=== PATIENT | male | born 1955 | race African-American/Black ===

== ENCOUNTER 2017-09-19 15:15 | Inpatient (IN) ==
[2017-09-19] MEDS ORDERED: 0.9 % SODIUM CHLORIDE 1,000 ML IV ONE ×3 (15:24→16:50)
--- NOTE | 2017-09-19 15:47 | XRay Report ---
HISTORY: Reason for Exam:SOB FINDINGS: Right diaphragm is mild to moderately elevated. This has become worse since 08/12/17. The lungs are clear. The heart size, mediastinum, sobia and pleura are normal. IMPRESSION: Increasing elevation of the right diaphragm of undetermined etiology Interpreted and Authenticated by: Joaquín Duckworth 09/19/17
[2017-09-19 15:59] LABS: Mean Cell Volume 91.4 fL (80.0-100.0); Mean Corpuscular HGB Conc 33.4 g/dL (31.0-36.0); Mean Corpuscular Hemoglobin 30.5 pg (26.0-34.0); Platelet Count 467 K/mcL (140-440); RBC 4.26 M/mcL (4.50-5.90); Red Cell Distribution Width 13.6 % (11.5-14.5)
--- NOTE | 2017-09-19 16:09 | Emergency Department Note ---
SOB HPI - General Chief Complaint: Shortness of Breath/Dyspnea Stated Complaint: Shortness of breath Time Seen by Provider: 09/19/17 15:23 Source: patient Mode of arrival: ambulatory Limitations: no limitations - History of Present Illness 62-year-old male sent over Shalom Rosen PA-C from [facility], for shortness of breath with hypotension. He has been short of breath for the last 3-4 weeks but is been getting worse. Increased urination. Has had diarrhea for the last few days which is watery. No blood in stool or urine. No nausea or vomiting. He is having right lower quadrant pain. No recent antibiotics. The belly pain wakes him up at night sometimes but he is also having to get up to go urinate. He recently had a cholecystectomy back in August 2017 or about 6 weeks ago - Related Data Previous Rx's Medication Instructions Recorded TriMix 30 mcg INTRACAVIT DIRECTED #2 09/09/16 amlodipine 5 mg tablet 5 mg PO QDAY #30 tab 02/14/17 spironolactone 25 mg tablet 25 mg PO QAM #30 tab 06/30/17 rosuvastatin 10 mg tablet 10 mg PO QDAY #90 tab 07/07/17 glipizide ER 10 mg tablet, 10 mg PO QDAY #90 tab 08/06/17 extended release 24 hr sitagliptin 25 mg tablet 25 mg PO QDAY #90 tab 08/06/17 losartan 50 mg tablet 50 mg PO QDAY #30 tab 08/11/17 esomeprazole magnesium 20 mg 20 mg PO BID #180 cap 08/12/17 capsule,delayed release Allergies Allergy/AdvReac Type Severity Reaction Status Date / Time No Known Drug Allergies Allergy Verified 09/19/17 14:54 Review of Systems All systems ED: reviewed and negative except as stated. Past Medical History - Past Medical History Attestation: Yes: The following information was validated with the patient. Medical history: Reports: arthritis, DM, GERD, hyperlipidemia, hypertension, renal disease, other (Mnire's, peripheral vascular disease) Surgical history ED: Reports: cholecystectomy, orthopedic, other (Rotator cuff, ankle), other (Prostate cryotherapy, pilonidal cyst) - Social History smoking status: Former smoker Alcohol use: Reports: Frequently Physical Exam No acute distress resting comfortably. Normocephalic atraumatic. Hearing aid in place. Conjunctive are clear sclerae nonicteric. No nasal discharge or congestion. Oropharynx pink and moist. Neck is supple without lymphadenopathy thyromegaly or carotid bruit. Heart is regular rate and rhythm no murmur appreciated. Lungs are clear to auscultation bilaterally without wheezes rales rhonchi or respiratory distress-that said he does have increased work of breathing and dyspnea with even mild exertion like moving around on the bed. Abdomen is soft nontender except for the right lower quadrant which is mildly tender. No peritoneal signs or guarding. No pedal edema. +2 radial pulse. Alert oriented able to answer questions appropriately. No dysarthria or ataxia noted Limitations: no limitations Course Vital Signs Temperature 96.4 F L 09/19/17 15:15 Pulse Rate 100 H 09/19/17 15:15 Respiratory Rate 18 09/19/17 15:15 Blood Pressure 97/61 09/19/17 15:15 Pulse Oximetry (%) 98 09/19/17 15:15 Temperature 96.4 F L 09/19/17 15:15 Pulse Rate 93 H 09/19/17 17:09 Respiratory Rate 14 09/19/17 17:09 Blood Pressure 87/56 09/19/17 17:09 Pulse Oximetry (%) 99 09/19/17 17:09 Shortness of Breath/Dyspnea - Lab Data Lab results reviewed: Yes I reviewed the patient's lab results. Result diagrams: 09/19/17 15:30 09/19/17 15:30 Lab Results 09/19/17 09/19/17 09/19/17 Range/Units 15:30 15:30 15:30 WBC 23.4 H (4.5-11.0) K/mcL RBC 4.26 L (4.50-5.90) M/mcL Hgb 13.0 L (13.5-16.5) g/dL Hct 38.9 L (41.0-55.0) % POC Hct (41.0-55.0) % MCV 91.4 (80.0-100.0) fL MCH 30.5 (26.0-34.0) pg MCHC 33.4 (31.0-36.0) g/dL RDW 13.6 (11.5-14.5) % Plt Count 467 H (140-440) K/mcL MPV 7.4 (7.4-10.4) fL Total Counted 100 Seg Neutrophils % 69 (38-78) % Band Neutrophils % Not Reportable Lymphocytes % 15 (15-49) % Monocytes % (Manual) 9 (1-12) % Eosinophils % (Manual) 2 (0-7) % Metamyelocytes % 3 H (0-0) % Myelocytes % 2 H (0-0) % Platelet Estimate Increased A (NORMAL) RBC Morphology Normal (NORMAL) D-Dimer VBG Lactic Acid (0.5-2.2) mmol/L POC Sodium (133-145) mmol/L Sodium 127 L (133-145) mmol/L POC Potassium (3.3-5.1) mmol/L Potassium 4.4 (3.3-5.1) mmol/L POC Chloride (96-108) mmol/L Chloride 90 L (96-108) mmol/L Carbon Dioxide 18 L (22-30) mmol/L POC Total CO2 (22-30) mmol/L Anion Gap 19.0 H (8-16) POC BUN (8-23) mg/dl BUN 35 H (8-23) mg/dl Creatinine 2.7 H (0.7-1.2) mg/dl POC Creatinine (0.7-1.2) mg/dl GFR Calculation 24 Glucose 227 H (70-105) mg/dL POC Glucose (70-105) mg/dL Calcium 9.8 (8.6-10.4) mg/dl POC WB Ioniz Calcium (1.16-1.32) mmol/L Total Bilirubin 1.0 (0.0-1.0) mg/dL AST 105 H (0-37) U/l ALT 43 H (0-40) U/l Alkaline Phosphatase 274 H (39-117) U/L Total Protein 8.4 (5.9-8.4) gm/dL Albumin 3.0 L (3.2-5.2) gm/dL Globulin 5.4 H (2.2-3.7) gm/dL Albumin/Globulin Ratio 0.6 L (1.0-2.3) Lipase (7-60) U/L Procalcitonin 71.88 (<0.10) ng/mL Urine Color Urine Appearance Urine pH (5.0-9.0) Ur Specific [place] (1.000-1.035) Urine Protein (NEG) mg/dL Urine Glucose (UA) (NEG) mg/dL Urine Ketones (NEG) mg/dL Urine Occult Blood (<0.03) mg/dL Urine Nitrate (NEG) Urine Bilirubin (NEG) mg/dL Urine Ictotest (NEG) Urine Urobilinogen (NEG) mg/dL Ur Leukocyte Esterase (NEG) /uL Urine RBC (0-1) /hpf Urine WBC (0-4) /hpf Ur Squamous Epith Cells (0-4) /hpf Amorphous Crystals (0) /hpf Urine Bacteria (0) /hpf Granular Casts (0) /lpf Ur Culture Indicated? 09/19/17 09/19/17 09/19/17 Range/Units 15:40 15:50 15:58 WBC (4.5-11.0) K/mcL RBC (4.50-5.90) M/mcL Hgb (13.5-16.5) g/dL Hct (41.0-55.0) % POC Hct 37.0 L (41.0-55.0) % MCV (80.0-100.0) fL MCH (26.0-34.0) pg MCHC (31.0-36.0) g/dL RDW (11.5-14.5) % Plt Count (140-440) K/mcL MPV (7.4-10.4) fL Total Counted Seg Neutrophils % (38-78) % Band Neutrophils % Lymphocytes % (15-49) % Monocytes % (Manual) (1-12) % Eosinophils % (Manual) (0-7) % Metamyelocytes % (0-0) % Myelocytes % (0-0) % Platelet Estimate (NORMAL) RBC Morphology (NORMAL) D-Dimer VBG Lactic Acid 3.0 H (0.5-2.2) mmol/L POC Sodium 133 (133-145) mmol/L Sodium (133-145) mmol/L POC Potassium 4.0 (3.3-5.1) mmol/L Potassium (3.3-5.1) mmol/L POC Chloride 102 (96-108) mmol/L Chloride (96-108) mmol/L Carbon Dioxide (22-30) mmol/L POC Total CO2 18 L (22-30) mmol/L Anion Gap (8-16) POC BUN 32 H (8-23) mg/dl BUN (8-23) mg/dl Creatinine (0.7-1.2) mg/dl POC Creatinine 2.5 H (0.7-1.2) mg/dl GFR Calculation Glucose (70-105) mg/dL POC Glucose 218 H (70-105) mg/dL Calcium (8.6-10.4) mg/dl POC WB Ioniz Calcium 1.09 L (1.16-1.32) mmol/L Total Bilirubin (0.0-1.0) mg/dL AST (0-37) U/l ALT (0-40) U/l Alkaline Phosphatase (39-117) U/L Total Protein (5.9-8.4) gm/dL Albumin (3.2-5.2) gm/dL Globulin (2.2-3.7) gm/dL Albumin/Globulin Ratio (1.0-2.3) Lipase (7-60) U/L Procalcitonin (<0.10) ng/mL Urine Color Ruby Urine Appearance Hazy Urine pH 5.0 (5.0-9.0) Ur Specific [place] 1.025 (1.000-1.035) Urine Protein 100 A (NEG) mg/dL Urine Glucose (UA) 150 A (NEG) mg/dL Urine Ketones Neg (NEG) mg/dL Urine Occult Blood Neg (<0.03) mg/dL Urine Nitrate Neg (NEG) Urine Bilirubin Neg (NEG) mg/dL Urine Ictotest Neg (NEG) Urine Urobilinogen 4.0 A (NEG) mg/dL Ur Leukocyte Esterase 25 A (NEG) /uL Urine RBC 1 (0-1) /hpf Urine WBC 7 H (0-4) /hpf Ur Squamous Epith Cells 1 (0-4) /hpf Amorphous Crystals Few A (0) /hpf Urine Bacteria 0 (0) /hpf Granular Casts 6 H (0) /lpf Ur Culture Indicated? Yes 09/19/17 09/19/17 Range/Units 16:30 17:30 WBC (4.5-11.0) K/mcL RBC (4.50-5.90) M/mcL Hgb (13.5-16.5) g/dL Hct (41.0-55.0) % POC Hct (41.0-55.0) % MCV (80.0-100.0) fL MCH (26.0-34.0) pg MCHC (31.0-36.0) g/dL RDW (11.5-14.5) % Plt Count (140-440) K/mcL MPV (7.4-10.4) fL Total Counted Seg Neutrophils % (38-78) % Band Neutrophils % Lymphocytes % (15-49) % Monocytes % (Manual) (1-12) % Eosinophils % (Manual) (0-7) % Metamyelocytes % (0-0) % Myelocytes % (0-0) % Platelet Estimate (NORMAL) RBC Morphology (NORMAL) D-Dimer TNP VBG Lactic Acid (0.5-2.2) mmol/L POC Sodium (133-145) mmol/L Sodium (133-145) mmol/L POC Potassium (3.3-5.1) mmol/L Potassium (3.3-5.1) mmol/L POC Chloride (96-108) mmol/L Chloride (96-108) mmol/L Carbon Dioxide (22-30) mmol/L POC Total CO2 (22-30) mmol/L Anion Gap (8-16) POC BUN (8-23) mg/dl BUN (8-23) mg/dl Creatinine (0.7-1.2) mg/dl POC Creatinine (0.7-1.2) mg/dl GFR Calculation Glucose (70-105) mg/dL POC Glucose (70-105) mg/dL Calcium (8.6-10.4) mg/dl POC WB Ioniz Calcium (1.16-1.32) mmol/L Total Bilirubin (0.0-1.0) mg/dL AST (0-37) U/l ALT (0-40) U/l Alkaline Phosphatase (39-117) U/L Total Protein (5.9-8.4) gm/dL Albumin (3.2-5.2) gm/dL Globulin (2.2-3.7) gm/dL Albumin/Globulin Ratio (1.0-2.3) Lipase 46 (7-60) U/L Procalcitonin (<0.10) ng/mL Urine Color Urine Appearance Urine pH (5.0-9.0) Ur Specific [place] (1.000-1.035) Urine Protein (NEG) mg/dL Urine Glucose (UA) (NEG) mg/dL Urine Ketones (NEG) mg/dL Urine Occult Blood (<0.03) mg/dL Urine Nitrate (NEG) Urine Bilirubin (NEG) mg/dL Urine Ictotest (NEG) Urine Urobilinogen (NEG) mg/dL Ur Leukocyte Esterase (NEG) /uL Urine RBC (0-1) /hpf Urine WBC (0-4) /hpf Ur Squamous Epith Cells (0-4) /hpf Amorphous Crystals (0) /hpf Urine Bacteria (0) /hpf Granular Casts (0) /lpf Ur Culture Indicated? - Radiology Data Radiology results reviewed: Yes I reviewed the patient's radiology results. Chest x-ray shows no acute process. Mildly elevated right hemidiaphragm - EKG Data EKG attestation: Yes I reviewed and interpreted this EKG. EKG results narrative: EKG shows a rate of 102 with a long QT but no evidence of ischemia Disposition Pt seen by [facility]/PA only: No Clinical Impression: Liver abscess, Acute kidney injury, Shortness of breath Sepsis Qualifiers: Sepsis type: sepsis due to unspecified organism Qualified Code(s): A41.9 - Sepsis, unspecified organism Summary: Workup ordered with laboratory and chest x-ray-Sirs/sepsis protocol started. Culture ordered and Zosyn started Chest x-ray unrevealing-he has unexplained tachycardia hypotension and dyspnea on exertion so CT angios was ordered. CT abdomen and pelvis is also ordered of the abdomen because the right sided tenderness and the potential for sepsis from belly pathology. Blood pressure remained low even manually right side 87/56 left side 84/59 Laboratories concerning for sepsis with leukocytosis and lactic acidosis. Unfortunately because of his creatinine level which is markedly increased from 1.1 now to 2.7 we could not get CT scans with contrast so CT is done without contrast. CT chest is normal appearing but he has a very large liver with mass versus abscess. Per radiology will do liver biopsy with catheter drain to sort out. Labs ordered on tissue/fluid preprocedure ABG and d-dimer are pending Discussed his case with Dr. Yohannes Pride, general surgeon, and Dr. Cho, hospitalist. Reviewed CT scan together. Dr. Cho will admit patient for sepsis to the ICU after he returns from drain catheter placement in IR. Disposition: Xfer As Inpt ([facility]) Condition: Critical Referrals: Buddy Obregon MD [Primary Care Provider] -
[2017-09-19] MEDS ORDERED: PIPERACILLIN SODIUM/TAZOBACTAM 3.375 GM in DEXTROSE 5% IN WATER 50 ML IV ONE (16:23)
[2017-09-19 16:29] LABS: ALT/SGPT 43 U/l (0-40); Albumin/Globulin Ratio 0.6 (1.0-2.3); Alkaline Phosphatase 274 U/L (39-117); Blood Urea Nitrogen 35 mg/dl (8-23)
[2017-09-19 16:33] LABS: Eosinophils % (Manual) 2 % (0-7); Lymphocytes % 15 % (15-49); Metamyelocytes % 3 % (0-0); Monocytes % (Manual) 9 % (1-12); Myelocytes % 2 % (0-0); Platelet Estimate INCREASED (NORMAL); RBC Morphology NORMAL (NORMAL); Segmented Neutrophils % 69 % (38-78)
[2017-09-19 16:40] LABS: Appearance,Urine HAZY; Bacteria,Urine 0 /hpf (0); Bilirubin,Urine NEG (NEG); Color,Urine AMBER; Glucose,Urine (UA) 150 mg/dL (NEG); Ictotest,Urine NEG (NEG); Leukocyte Esterase,Urine 25 /uL (NEG); Protein,Urine 100 mg/dL (NEG); Specific Gravity,Urine 1.025 (1.000-1.035); Urine Amorphous Crystals FEW /hpf (0); Urine Blood NEG mg/dL (<0.03); Urine Granular Cast 6 /lpf (0); Urine RBC 1 /hpf (0-1); Urine Squamous Epithelial Cell 1 /hpf (0-4); Urine WBC 7 /hpf (0-4)
--- NOTE | 2017-09-19 17:15 | Cat Scan Report ---
History: Shortness of breath, abdominal pain and elevated white blood cell count TECHNIQUE: The patient was imaged without intravenous contrast due to rising BUN/creatinine. Patient was scanned from the thoracic inlet to the symphysis pubis. Sagittal and coronal reformats were created. Radiation exposure was limited using dose reduction technique. FINDINGS: The lungs are clear, without evidence of pneumonia, mass or pleural effusion. The heart is normal in size and contour. The aorta is normal in caliber. There is no plaque formation. No adenopathy is present in the mediastinum. Abdomen and pelvis: There is a large multilobulated low-attenuation mass located centrally in the right lobe of the liver. Measures approximately 10 x 11 cm in size. It contains a small bubble of air. There are also two linear oriented radiopaque structures along the anterior aspect which could be surgical clips. There are also clips in gallbladder fossa following cholecystectomy. This lesion within the liver extends through the capsule into the region of the gallbladder fossa and is contiguous with the hepatic flexure the colon. The extrahepatic component of the lesion measures approximately 4 x 9 cm. No free intraperitoneal air is present in the patient has no ascites. The spleen pancreas and adrenals are normal. There is a 2 mm calculus in the upper pole the right kidney. No hydronephrosis is present in either kidney. Bowel gas pattern is normal. Urinary bladder is decompressed. IMPRESSION: Large low-attenuation lesion in the liver which extends into the gallbladder fossa. I suspect this is large liver abscess. This is less likely a liver tumor with central necrosis. Normal chest Interpreted and Authenticated by: Joaquín Duckworth 09/19/17
[2017-09-19 17:37] LABS: Lipase 46 U/L (7-60)
[2017-09-19] MEDS ORDERED: LACTATED RINGERS 1,000 ML IV ONE ×2 (18:41→20:28)
--- NOTE | 2017-09-19 19:20 | Ultrasound Report ---
History: Low density lesion in the liver seen on CT, Fever, shortness of breath, elevated white blood cell count and status post cholecystectomy two months ago TECHNIQUE: The procedure and risks were explained and the patient consented. The skin over the right upper quadrant was prepped with ChloraPrep and then anesthetized with 1% lidocaine. Using ultrasound guidance a coaxial 17/18-gauge Biopence needle was inserted into the complex heterogeneous mass located centrally in the right lobe. Two core samples were obtained. Pus was acquired but no solid tissue was obtained. Through the introducer needle I was able to aspirate 100 cc pus. This was sent for culture. A second site was then anesthetized with 1% lidocaine. An incision was made. Using trocar technique an 8.5 Cymro multi sidehole drainage catheter was inserted into the abscess collection. 175 cc of pus was aspirated. I had difficulty removing more puss since the catheter became partially occluded. The catheter was flushed with saline and was able to obtain little bit more pus. Ultrasound shows the placement of the catheter is in the center of the collection. There is still a significant amount of residual pus. The catheter was connected to an external drainage bag. Catheter was secured to the skin surface. IMPRESSION: Large abscess in the right lobe of the liver. Successful insertion of an 8.5 Cymro drainage catheter into the abscess. The abscess was only partially evacuated. Interpreted and Authenticated by: Joaquín Duckworth 09/19/17
--- NOTE | 2017-09-19 19:57 | Internal Med History&Physical ---
Medical - H&P: HPI Patient information: Note initiated : 09/19/17 at 7:49 pm Service Date, if different from initiated Date: [] Patient: Roosevelt Rodriguez a 62 y/o M admitted on for Shortness of breath. Chief Complaint: [] History of present illness: Mr. Rodriguez is a 62 year old Male with h/o dm, htn, hld, recent cholecystectomy, presents to the er for not feeling well over 2-3 weeks, the patient had a cholecystetomy done 08/13/17, the procedure went well and the patient was feeling good after the procedure. AT the end of august, he started to notice that he was more tired than usual, he was weak, and had shortness of breath on exertion, dizziness, decreased appetitie,fevers, chills and rigors. The patient was using aspirin/ tylenol to help with his fevers, and was thinking he would just fight this out, thinking its a viral syndrome. HE was convinced by family to eventually come to the hospital for evaluation. In the hospital he was noted to be hypotensive, he was afebrile, labs showed leucocytosis, renal failure, elevated procalcitonin to 72, elevaetd lft. Pt underwent a CT abdomen which showed a liver abscess, USG done, initially with the thought of a biopsy, but only pus came out, so a drain was placed. patient was admitted to the hospital for further management I spoke with the surgeon, Dr Pride who reviewed the images and does not feel that this is secondary to cholecysteomy. The fluid as per the surgeon in the extra hepatic space is liky to be non infected. The patient was in [place] in may, but denies any over seas travels, denies eating raw foods, he did have diarrhea a few weeks and has had it ongoing, last BM yesterday. 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) Pneumonia (Resolved) Peripheral neuropathy (Chronic) Osteoarthritis (Chronic) Neck pain (Chronic) Microscopic hematuria (Chronic) Metabolic disorder (Chronic) Meniere disease (Chronic) Low back pain (Chronic) Intramuscular hematoma (Resolved) Hyponatremia (Resolved) Hypopotassemia (Resolved) Hypocalcemia (Resolved) Hypertension, essential (Chronic) Hyperlipidemia (Chronic) Closed fracture of humerus (Resolved) Gynecomastia (Resolved) Gastroesophageal reflux (Chronic) Closed fracture dislocation of multiple fingers (Resolved 08/17/94) Fatigue (Chronic) Eustachian tube dysfunction (Chronic) Erectile dysfunction (Chronic) Dysphagia (Chronic) Diverticulosis of colon (Chronic 09/30/13) Type 2 diabetes mellitus (Chronic) Colon adenoma (Chronic 06/25/13) Senile nuclear cataract (Chronic) Bronchitis (Chronic) Closed fracture of right ankle (Resolved) Anemia (Chronic) Allergic rhinitis (Chronic 06/25/14) Surgical history: Past Surgical History (Last Reviewed 09/19/17 @ 15:09 by Shalom Rosen PA-C) Status post cryoablation (Resolved 12/06/14) History of ureter stent (Resolved) History of ureter repair (Resolved) History of repair of rotator cuff (Resolved) History of prostate biopsy (Resolved) History of pilonidal cyst (Resolved) History of esophagogastroduodenoscopy (Resolved) Status post cystourethroscopy with dilation of urethral stricture (Resolved) History of colonoscopy (Resolved 09/09/13) Status post surgical manipulation of ankle joint (Resolved) History of laparoscopic cholecystectomy (Acute) Pertinent family history: Family History (Last Reviewed 09/19/17 @ 15:09 by Shalom Rosen PA-C) Father Diabetes mellitus Cardiac disease Parkinson's Disease Malignant neoplasm of prostate Brother Family history of suicide Unknown Type 1 diabetes mellitus Essential hypertension Medical - H&P: Meds Home Medications Medication Instructions Recorded Confirmed Type TriMix 30 mcg INTRACAVIT DIRECTED #2 09/09/16 09/19/17 Rx amlodipine 5 mg tablet 5 mg PO QDAY #30 tab 02/14/17 09/19/17 Rx spironolactone 25 mg tablet 25 mg PO QAM #30 tab 06/30/17 09/19/17 Rx rosuvastatin 10 mg tablet 10 mg PO QDAY #90 tab 07/07/17 09/19/17 Rx glipizide ER 10 mg tablet, 10 mg PO QDAY #90 tab 08/06/17 09/19/17 Rx extended release 24 hr sitagliptin 25 mg tablet 25 mg PO QDAY #90 tab 08/06/17 09/19/17 Rx losartan 50 mg tablet 50 mg PO QDAY #30 tab 08/11/17 09/19/17 Rx esomeprazole magnesium 20 mg 20 mg PO BID #180 cap 08/12/17 09/19/17 Rx capsule,delayed release Allergies Allergy/AdvReac Type Severity Reaction Status Date / Time No Known Drug Allergies Allergy Verified 09/19/17 14:54 Medical - H&P: Exam - Constitutional Vitals: Temp Pulse Resp BP Pulse Ox 96.4 F L 95 H 12 107/64 98 09/19/17 15:15 09/19/17 18:51 09/19/17 18:51 09/19/17 18:51 09/19/17 18:51 Exam: GENERAL: The patient is a well-developed, well-nourished in no apparent distress. Is alert and oriented x3. VITAL SIGNS: Reviewed and as noted elsewhere. HEENT: Head is normocephalic and atraumatic. Extraocular muscles are intact. Pupils are equal, round, and reactive to light. Nares appeared normal. Mouth appears any without lesions. Mucous membranes are moist. NECK: Normal to inspection, Supple, No lymphadenopathy or thyromegaly. LUNGS: Air entry equal on both sides, no wheezing, crackles or rhonchi noted. No accessory muscles of respiration HEART: Regular rate and rhythm normal, S1 and S2 heard, no Gallop, S3 or Rub Noted, No Gross murmur heard. ABDOMEN: Soft, right upper quadrant tenderness, no guarding or rigidity, bowel sounds present, drain in the right side of the abdomen. EXTREMITIES: No cyanosis, clubbing, rash, lesions or edema. NEUROLOGIC: Cranial nerves II through XII are grossly intact. Motor and Sensory System Grossly Intact PSYCHIATRIC: Normal affect, Normal Mood. Appropriate Behavior. SKIN: No ulceration or wounds noted, No jaundice, No rash noted. Medical - H&P: Reslt - Labs CBC & Chem 7: 09/19/17 15:30 09/19/17 15:30 Labs: Short CBC 09/19/17 Range/Units 15:30 WBC 23.4 H (4.5-11.0) K/mcL Hgb 13.0 L (13.5-16.5) g/dL Hct 38.9 L (41.0-55.0) % Plt Count 467 H (140-440) K/mcL BMP 09/19/17 15:30 Sodium 127 L Potassium 4.4 Chloride 90 L Carbon Dioxide 18 L BUN 35 H Creatinine 2.7 H Glucose 227 H Calcium 9.8 Liver Function 09/19/17 Range/Units 15:30 Total Bilirubin 1.0 (0.0-1.0) mg/dL AST 105 H (0-37) U/l ALT 43 H (0-40) U/l Alkaline Phosphatase 274 H (39-117) U/L Albumin 3.0 L (3.2-5.2) gm/dL Urine 09/19/17 Range/Units 15:50 Urine Color Ruby Urine Appearance Hazy Urine pH 5.0 (5.0-9.0) Ur Specific [place] 1.025 (1.000-1.035) Urine Protein 100 A (NEG) mg/dL Urine Glucose (UA) 150 A (NEG) mg/dL Medical - H&P: A/P - Narrative A/P Narrative: A/P Septic shock Pyogenic Liver abscess Hypotension Lactic acidosis Acute on Chronic liver failure diabetes mellitus BPH Plan Admit to ICU, given hypotension and need for close monitoring Drain placed by Radiology, draining pus, will switch the bag to luc drain. IV antibotics, vanco, zosyn and flagyl, Vanco added because of recent surgery and percutaneous drain trend lactic acid IV fluids, it seems 4 were ordered ,but only 2 given, will give one more bolus fluid Keep map > 65, use levophed if needed HOld bp meds ssi for glucose control for now. Get serology for ameoba Ova for ameoba in stool consider Cdiff of the stool/ aspirate as rarely cdiff can cause pyogenic abcess if all workup is negative. Sugraulito aware, does not think abbess related to recent Sx pt had colonoscopy done [address] awad, notes 1 Adenomatous polyp and 2 HP , DVT hep sq Diet carb consistent Full code. Social History - Social History household members: spouse housing: house lives independently: Yes marital status: education level: high school occupational status: retired - Tobacco smoking status: Former smoker - Alcohol alcohol intake frequency: former alcohol drinker
[2017-09-19] MEDS ORDERED: DEXTROSE 50% 50 ML VIAL IV PRN (20:22)
[2017-09-19] MEDS ORDERED: DEXTROSE 31 GM ORAL.SUSP PO PRN (20:22)
[2017-09-19] MEDS ORDERED: VANCOMYCIN PER PHARMACY IV ONE (20:22)
[2017-09-19] MEDS ORDERED: ONDANSETRON 4 MG/2 ML VIAL IV PRN (20:22)
[2017-09-19] MEDS ORDERED: VANCOMYCIN 1,500 MG in 0.9 % SODIUM CHLORIDE 500 ML IV ONE (21:00)
[2017-09-19] MEDS: INSULIN LISPRO 1 UNIT/0.01 ML UNIT SQ SCH (21:00)
[2017-09-19] MEDS: LACTATED RINGERS 1,000 ML IV SCH (21:25)
[2017-09-19] MEDS: HEPARIN 5,000 UNIT/ML VIAL SQ SCH (23:05)
[2017-09-19] MEDS: FAMOTIDINE/PF 20 MG/2 ML VIAL IV SCH (23:06)
[2017-09-19] MEDS: metroNIDAZOLE 500 MG/100 ML BAG IV SCH (23:07)
[2017-09-19] MEDS: 0.9 % SODIUM CHLORIDE 10 ML SYRINGE IV SCH (23:38)
[2017-09-19] MEDS: NOREPINEPHRINE BITARTRATE 16 MG in 0.9 % SODIUM CHLORIDE 234 ML IV SCH (23:39)
[2017-09-19] MEDS: PANTOPRAZOLE 40 MG TABLET PO SCH (23:42)
[2017-09-20] MEDS: PIPERACILLIN SODIUM/TAZOBACTAM 2.25 GM in DEXTROSE 5% IN WATER 50 ML IV SCH ×2 (00:54→05:45)
[2017-09-20] MEDS: metroNIDAZOLE 500 MG/100 ML BAG IV SCH ×3 (04:41→22:13)
[2017-09-20 05:16] LABS: Basophils # (Auto) 0 K/mcL (0.0-0.3); Basophils % (Auto) 0.3 % (0.0-2.0); Eosinophils # (Auto) 0.2 K/mcL (0.0-0.7); Eosinophils % (Auto) 1.5 % (0.0-7.0); Granulocytes % (Auto) 79.1 % (38.0-78.0); Lymphocytes # (Auto) 1.2 K/mcL (1.5-4.8); Mean Cell Volume 93.4 fL (80.0-100.0); Mean Corpuscular HGB Conc 32.9 g/dL (31.0-36.0); Mean Corpuscular Hemoglobin 30.7 pg (26.0-34.0); Monocytes # (Auto) 1.3 K/mcL (0.1-0.9); Monocytes % (Auto) 10.1 % (1.0-12.0); Platelet Count 374 K/mcL (140-440); RBC 3.38 M/mcL (4.50-5.90); Red Cell Distribution Width 13.4 % (11.5-14.5)
[2017-09-20 05:36] LABS: ALT/SGPT 30 U/l (0-40); Albumin 2.3 gm/dL (3.2-5.2); Albumin/Globulin Ratio 0.6 (1.0-2.3); Alkaline Phosphatase 210 U/L (39-117); Bilirubin,Direct 0.2 mg/dL (0.0-0.3); Blood Urea Nitrogen 27 mg/dl (8-23); Gamma Glutamyl Transpeptidase 78 U/L (8-61); Uric Acid 5.5 mg/dL (2.5-8.0)
[2017-09-20] MEDS: 0.9 % SODIUM CHLORIDE 10 ML SYRINGE IV SCH ×3 (05:45→22:14)
[2017-09-20] MEDS ORDERED: VANCOMYCIN PER PHARMACY IV SCH (07:15)
[2017-09-20] MEDS: PANTOPRAZOLE 40 MG TABLET PO SCH ×2 (07:23→16:32)
[2017-09-20] MEDS: INSULIN LISPRO 1 UNIT/0.01 ML UNIT SQ SCH ×4 (07:29→22:14)
[2017-09-20] MEDS: LACTATED RINGERS 1,000 ML IV SCH (07:50)
[2017-09-20] MEDS ORDERED: MAGNESIUM SULFATE 2 GM/50 ML BAG IV ONE (08:04)
[2017-09-20 09:01] LABS: Vancomycin,Random 16.4 ug/mL
--- NOTE | 2017-09-20 09:46 | Cat Scan Report ---
History: Follow-up liver abscess TECHNIQUE: Upper abdomen was imaged without oral or IV contrast. The patient's BUN/creatinine are still elevated. Sagittal and coronal reformats were created. Radiation exposure was limited using dose reduction technology. FINDINGS: There is a low-attenuation abscess in the right lobe liver, predominantly located in segments five and eight. It measures 7 x 9 cm in transverse dimension. Yesterday it measured 10 x 11 cm in transverse dimension, prior to the catheter insertion. This contains a few small bubbles of air. Along the lateral border of the abscess there is a pigtail catheter. This had been partially pulled out since the time of the catheter insertion done yesterday. On physical exam the skin dressing had been partially pulled off. This apparently occurred overnight. The tip of the catheter is now predominantly located within the surrounding normal liver parenchyma with only a small amount of the catheter within the abscess pocket. This explains why the catheter is no longer draining pus. There is a second component of the abscess which is outside of the liver capsule. It extends from the gallbladder fossa to the top of the hepatic flexure. This component measures approximately 4 x 9 cm in transverse dimension. Extending from this, there is a vertical component which extends further inferiorly and is located posterior to the internal oblique and the lateral portion of the rectus abdominis muscle. It measures 3 x 4 cm in transverse dimension and 10 cm in length. The extrahepatic components of the abscess have remained stable since yesterday. No free intraperitoneal air or fluid are present. Stomach and bowel are normal in caliber without evidence of ileus or obstruction. There is a small nonobstructing stone in an upper pole calyx of the right kidney. The kidneys are otherwise normal. No abnormality seen within the pancreas, adrenals or spleen. There is a band of discoid atelectasis posteriorly in the right lower lobe. No pleural effusion is present. IMPRESSION: Large abscess in segments five and eight of the right lobe of the liver. This has diminished in size since yesterday. Indwelling pigtail catheter has been partially dislodged from the abscess and is now predominantly located within the adjacent normal liver parenchyma. Stable extrahepatic component of the abscess located along the inferior border of the liver, extending to the mid abdomen behind the rectus abdominis and external oblique muscles. Interpreted and Authenticated by: Joaquín Duckworth 09/20/17
[2017-09-20] MEDS: SIMVASTATIN 40 MG TABLET PO SCH (10:13)
[2017-09-20] MEDS: HEPARIN 5,000 UNIT/ML VIAL SQ SCH ×2 (10:13→22:08)
--- NOTE | 2017-09-20 10:40 | Internal Med Progress Note ---
Medical - PN: Subj Patient information: Note initiated : 09/20/17 at 10:38 am Service Date, if different from initiated Date: [] Patient: Roosevelt Rodriguez a 62 y/o M admitted on 09/19/17 for Shortness of breath. Chief Complaint: [] Interval history: Mr. Rodriguez is a 62 year old Male with h/o dm, htn, hld, recent cholecystectomy, presents to the er for not feeling well over 2-3 weeks, the patient had a cholecystetomy done 08/13/17, the procedure went well and the patient was feeling good after the procedure. AT the end of august, he started to notice that he was more tired than usual, he was weak, and had shortness of breath on exertion, dizziness, decreased appetitie,fevers, chills and rigors. The patient was using aspirin/ tylenol to help with his fevers, and was thinking he would just fight this out, thinking its a viral syndrome. HE was convinced by family to eventually come to the hospital for evaluation. In the hospital he was noted to be hypotensive, he was afebrile, labs showed leucocytosis, renal failure, elevated procalcitonin to 72, elevaetd lft. Pt underwent a CT abdomen which showed a liver abscess, USG done, initially with the thought of a biopsy, but only pus came out, so a drain was placed. patient was admitted to the hospital for further management I spoke with the surgeon, Dr Pride who reviewed the images and does not feel that this is secondary to cholecysteomy. The fluid as per the surgeon in the extra hepatic space is likey to be non infected. The patient was in [place] in may, but denies any over seas travels, denies eating raw foods, he did have diarrhea a few weeks and has had it ongoing, last BM yesterday. 09/20 Patient seen examined, no acute overnight events, drain not drain from liver not draining as much this AM Repeat CT done, shows drain is now in normal liver parenchyma not the abcess, also the size of extrahepatic abcess is unchanged will need multiple drains as per radiology here and he does not have the necessary tools to do this. Called Dr Briceño to see if he can help. He will review the images and get back with me Pt bp is stable, cut back fluids xfer to tele status. Pertinent ROS: Denies headache, dizziness Denies chest pain, palpitations Denies cough or shortness of breath Denies nausea or vomiting. Has ruq pain - Constitutional Vitals: Vital Signs Temp Pulse Resp BP Pulse Ox 98.7 F 102 H 15 98/72 97 09/20/17 07:23 09/20/17 08:01 09/20/17 08:01 09/20/17 08:01 09/20/17 08:01 Period Temp Pulse Resp BP Sys/Davidson Pulse Ox Last 24 Hr 96.4 F-98.7 F 86-103 10-26 74-109/56-85 94-100 Intake and Output 09/19/17 09/20/17 09/20/17 21:59 05:59 13:59 Intake Total 3050 / 3050 850 / 850 1473 / 1473 Output Total 450 / 450 1852 / 1852 1298 / 1298 Balance 2600 / 2600 -1002 / -1002 175 / 175 Weight 189 lb 6.4 oz Intake & Output: Intake & Output 09/19/17 09/20/17 09/20/17 21:59 05:59 13:59 Intake Total 3050 / 3050 850 / 850 1473 / 1473 Output Total 450 / 450 1852 / 1852 1298 / 1298 Balance 2600 / 2600 -1002 / -1002 175 / 175 Weight 189 lb 6.4 oz Intake: IV 3050 / 3050 750 / 750 1173 / 1173 Sodium Chloride 0.9% 1,000 ml @ 1000 / 1000 Wide Open IV .Q0M ONE Rx#: [id number] Lactated Ringers 1,000 ml @ 125 1000 / 1000 1123 / 1123 mls/hr IV .Q8H [facility] Rx#: [id number] Zosyn 2.25 gm In Dextrose 5% in 50 / 50 50 / 50 Water 50 ml @ 100 mls/hr IV Q6H [facility] Rx#:[id number] Zosyn 3.375 gm In Dextrose 5% 50 / 50 in Water 50 ml @ 100 mls/hr IV ONCE ONE Rx#:[id number] Oral 100 / 100 300 / 300 Output: Drainage 150 / 150 102 / 102 23 / 23 Right Lateral Abdomen ABHINAV Drain 150 / 150 102 / 102 / 23 Void Amount 300 / 300 1750 / 1750 1275 / 1275 Other: # Voids 1 Exam: Constitutional; Afebrile, cooperative, alert, not in distress. Eyes- No icterus, , No periorbital swelling Ears- Ext ear normal, hearing normal to conversation. Neck- Midline trachea, supple Respiratory system: Air Entry equal on both sides, No crackles or wheezing, no rhonchi. CVS- Rate rhythm regular, S1,S2 heard, no gallop, no rub. 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 Medical - PN: Obj Da - Labs CBC & Chem 7: 09/20/17 03:35 09/20/17 03:35 Labs: Abnormal Lab Results 09/20/17 09/20/17 09/19/17 03:35 03:35 18:54 WBC 13.1 H RBC 3.38 L Hgb 10.4 L Hct 31.6 L POC Hct Plt Count MPV 6.9 L Gran % 79.1 H Lymph % (Auto) 9.0 L Gran # 10.4 H Lymph # (Auto) 1.2 L Starke # (Auto) 1.3 H Metamyelocytes % Myelocytes % Platelet Estimate D-Dimer 5.54 H VBG Lactic Acid Sodium Chloride Carbon Dioxide POC Total CO2 Anion Gap POC BUN BUN 27 H Creatinine 1.7 H POC Creatinine Glucose POC Glucose Calcium 8.5 L POC WB Ioniz Calcium GGT 78 H AST 66 H ALT Alkaline Phosphatase 210 H Albumin 2.3 L Globulin 4.0 H Albumin/Globulin Ratio 0.6 L Triglycerides 181 H Urine Protein Urine Glucose (UA) Urine Urobilinogen Ur Leukocyte Esterase Urine WBC Amorphous Crystals Granular Casts 09/19/17 09/19/17 09/19/17 15:58 15:50 15:40 WBC RBC Hgb Hct POC Hct 37.0 L Plt Count MPV Gran % Lymph % (Auto) Gran # Lymph # (Auto) Starke # (Auto) Metamyelocytes % Myelocytes % Platelet Estimate D-Dimer VBG Lactic Acid 3.0 H Sodium Chloride Carbon Dioxide POC Total CO2 18 L Anion Gap POC BUN 32 H BUN Creatinine POC Creatinine 2.5 H Glucose POC Glucose 218 H Calcium POC WB Ioniz Calcium 1.09 L GGT AST ALT Alkaline Phosphatase Albumin Globulin Albumin/Globulin Ratio Triglycerides Urine Protein 100 A Urine Glucose (UA) 150 A Urine Urobilinogen 4.0 A Ur Leukocyte Esterase 25 A Urine WBC 7 H Amorphous Crystals Few A Granular Casts 6 H 09/19/17 09/19/17 15:30 15:30 WBC 23.4 H RBC 4.26 L Hgb 13.0 L Hct 38.9 L POC Hct Plt Count 467 H MPV Gran % Lymph % (Auto) Gran # Lymph # (Auto) Starke # (Auto) Metamyelocytes % 3 H Myelocytes % 2 H Platelet Estimate Increased A D-Dimer VBG Lactic Acid Sodium 127 L Chloride 90 L Carbon Dioxide 18 L POC Total CO2 Anion Gap 19.0 H POC BUN BUN 35 H Creatinine 2.7 H POC Creatinine Glucose 227 H POC Glucose Calcium POC WB Ioniz Calcium GGT AST 105 H ALT 43 H Alkaline Phosphatase 274 H Albumin 3.0 L Globulin 5.4 H Albumin/Globulin Ratio 0.6 L Triglycerides Urine Protein Urine Glucose (UA) Urine Urobilinogen Ur Leukocyte Esterase Urine WBC Amorphous Crystals Granular Casts Meds: Medications Dextrose (Dextrose 50%) 0 ml IV UD PRN PRN Reason: Hypoglycemia Diagnostic Test (Pha) (Accu-Chek) 1 each FS ACHS [facility] Last Admin: 09/20/17 07:29 Dose: 1 each Famotidine (Pepcid) 20 mg IV HS [facility] Last Admin: 09/19/17 23:06 Dose: 20 mg Glucose (Insta-Glucose) 15 gm PO PRN PRN PRN Reason: Hypoglycemia Heparin Sodium (Porcine) (Heparin) 5,000 unit SQ Q12 [facility] Last Admin: 09/20/17 10:13 Dose: Not Given Norepinephrine Bitartrate 16 (mg/ Sodium Chloride) 250 mls @ 9.37 mls/hr IV Q24H [facility]; 10 MCG/MIN PRN Reason: Protocol Last Admin: 09/19/17 23:39 Dose: Not Given Lactated Ringer's (Lactated Ringers) 1,000 mls @ 125 mls/hr IV .Q8H [facility] Last Infusion: 09/20/17 10:00 Dose: 0 mls/hr Metronidazole (Flagyl) 500 mg in 100 mls @ 100 mls/hr IV Q8H [facility] Last Infusion: 09/20/17 05:41 Dose: Infused Piperacillin Sod/Tazobactam (Sod 3.375 gm/ Dextrose) 50 mls @ 100 mls/hr IV Q6H [facility] Insulin Human Lispro (Humalog) 0 unit SQ ACHS [facility] PRN Reason: Protocol Last Admin: 09/20/17 07:29 Dose: Not Given Ondansetron HCl (Zofran) 4 mg IV Q4-6HP PRN PRN Reason: Nausea And Vomiting Pantoprazole Sodium (Protonix) 40 mg PO BIDAC [facility] Last Admin: 09/20/17 07:23 Dose: 40 mg Simvastatin (Zocor) 40 mg PO DAILY [facility] Last Admin: 09/20/17 10:13 Dose: 40 mg Sodium Chloride (Saline Flush) 10 ml IV Q8 [facility] Last Admin: 09/20/17 05:45 Dose: 10 ml Vancomycin HCl (Vancomycin Per Pharmacy) 1 order IV UD [facility] Medical - PN: A/P - Time Spent With Patient Total time spent is greater than 50% in coordination of care (as documented) at patient's floor/unit and/or counseling patient: - Narrative A/P Narrative: A/P Septic shock- bp stable, ok ot xfer to tele status Pyogenic Liver abscess/ GPC bactermia- after cholecystectomy, IV antibiotics, IR to drain intra and extra hepatic abcesses. continue broad spectrum coverage for now. Hypotension - bp stable Lactic acidosis- resolved Acute on Chronic renal failure- creat improved to 1.7, continue to monitor, diabetes mellitus- ssi insulin for glucose control Resume home meds as appropriate Surgery aware, does not think abbess related to recent Sx pt had colonoscopy done [address] awad, notes 1 Adenomatous polyp and 2 HP. May need repeat scopy. Will discuss with GI DVT hep sq Diet carb consistent Full code. Medical - PN: Qual - VTE Deep Vein Thrombosis/Pulmonary Embolism Present on Admission: No
[2017-09-20] MEDS: PIPERACILLIN SODIUM/TAZOBACTAM 3.375 GM in DEXTROSE 5% IN WATER 50 ML IV SCH ×2 (14:20→19:36)
--- NOTE | 2017-09-20 15:25 | XRay Report ---
HISTORY: Reason for Exam: Short of breath and liver abscess FINDINGS: Right diaphragm is moderately elevated. This may be related to the abscess within the liver. The lungs are clear, without evidence of pneumonia or pleural effusion. The heart size and pulmonary vasculature are normal. IMPRESSION: Elevated right diaphragm. The chest is otherwise normal. Interpreted and Authenticated by: Joaquín Duckworth 09/20/17
[2017-09-20] MEDS: FAMOTIDINE/PF 20 MG/2 ML VIAL IV SCH (22:09)
[2017-09-20] MEDS: NOREPINEPHRINE BITARTRATE 16 MG in 0.9 % SODIUM CHLORIDE 234 ML IV SCH (22:15)
[2017-09-21] MEDS: PIPERACILLIN SODIUM/TAZOBACTAM 3.375 GM in DEXTROSE 5% IN WATER 50 ML IV SCH ×5 (00:11→23:26)
[2017-09-21] MEDS: LACTATED RINGERS 1,000 ML IV SCH ×2 (02:45→05:03)
[2017-09-21 04:13] LABS: Basophils # (Auto) 0 K/mcL (0.0-0.3); Basophils % (Auto) 0.3 % (0.0-2.0); Eosinophils # (Auto) 0.2 K/mcL (0.0-0.7); Eosinophils % (Auto) 1.9 % (0.0-7.0); Granulocytes % (Auto) 78.2 % (38.0-78.0); Lymphocytes # (Auto) 1.2 K/mcL (1.5-4.8); Lymphocytes % (Auto) 11.3 % (15.5-49.0); Mean Corpuscular HGB Conc 33.5 g/dL (31.0-36.0); Mean Corpuscular Hemoglobin 30.8 pg (26.0-34.0); Monocytes # (Auto) 0.9 K/mcL (0.1-0.9); Monocytes % (Auto) 8.3 % (1.0-12.0); Platelet Count 392 K/mcL (140-440); RBC 3.24 M/mcL (4.50-5.90); Red Cell Distribution Width 13.2 % (11.5-14.5)
[2017-09-21 04:23] LABS: Vancomycin,Random 6.9 ug/mL
[2017-09-21 04:24] LABS: ALT/SGPT 21 U/l (0-40); Albumin 2.2 gm/dL (3.2-5.2); Albumin/Globulin Ratio 0.5 (1.0-2.3); Alkaline Phosphatase 206 U/L (39-117); Bilirubin,Direct < 0.2 mg/dL (0.0-0.3); Blood Urea Nitrogen 19 mg/dl (8-23); Gamma Glutamyl Transpeptidase 82 U/L (8-61); Uric Acid 2.8 mg/dL (2.5-8.0)
[2017-09-21] MEDS: metroNIDAZOLE 500 MG/100 ML BAG IV SCH ×3 (05:03→21:50)
[2017-09-21] MEDS: 0.9 % SODIUM CHLORIDE 10 ML SYRINGE IV SCH ×5 (05:08→21:50)
[2017-09-21] MEDS: PANTOPRAZOLE 40 MG TABLET PO SCH ×2 (07:42→17:26)
[2017-09-21] MEDS: INSULIN LISPRO 1 UNIT/0.01 ML UNIT SQ SCH ×4 (08:42→20:58)
[2017-09-21] MEDS ORDERED: VANCOMYCIN 1,500 MG in 0.9 % SODIUM CHLORIDE 500 ML IV SCH (09:00)
[2017-09-21] MEDS: SIMVASTATIN 40 MG TABLET PO SCH (09:03)
[2017-09-21] MEDS: HEPARIN 5,000 UNIT/ML VIAL SQ SCH ×2 (09:03→20:58)
[2017-09-21] MEDS ORDERED: NOREPINEPHRINE BITARTRATE 16 MG in 0.9 % SODIUM CHLORIDE 234 ML IV PRN ×2 (13:15→13:38)
[2017-09-21] MEDS ORDERED: ALTEPLASE 2 MG VIAL IJ ONE ×2 (13:24→13:38)
[2017-09-21] MEDS ORDERED: DEXTROSE 31 GM ORAL.SUSP PO PRN (13:38)
[2017-09-21] MEDS ORDERED: DEXTROSE 50% 50 ML VIAL IV PRN (13:38)
[2017-09-21] MEDS ORDERED: ONDANSETRON 4 MG/2 ML VIAL IV PRN (13:38)
[2017-09-21] MEDS ORDERED: VANCOMYCIN PER PHARMACY IV SCH (13:38)
--- NOTE | 2017-09-21 13:55 | Internal Med Progress Note ---
Medical - PN: Subj Patient information: Note initiated : 09/21/17 at 1:48 pm Service Date, if different from initiated Date: [] Patient: Roosevelt Rodriguez a 62 y/o M admitted on 09/19/17 for Shortness of breath. Chief Complaint: [] Interval history: Mr. Rodriguez is a 62 year old Male with h/o dm, htn, hld, recent cholecystectomy, presents to the er for not feeling well over 2-3 weeks, the patient had a cholecystetomy done 08/13/17, the procedure went well and the patient was feeling good after the procedure. AT the end of august, he started to notice that he was more tired than usual, he was weak, and had shortness of breath on exertion, dizziness, decreased appetitie,fevers, chills and rigors. The patient was using aspirin/ tylenol to help with his fevers, and was thinking he would just fight this out, thinking its a viral syndrome. HE was convinced by family to eventually come to the hospital for evaluation. In the hospital he was noted to be hypotensive, he was afebrile, labs showed leucocytosis, renal failure, elevated procalcitonin to 72, elevaetd lft. Pt underwent a CT abdomen which showed a liver abscess, USG done, initially with the thought of a biopsy, but only pus came out, so a drain was placed. patient was admitted to the hospital for further management I spoke with the surgeon, Dr Pride who reviewed the images and does not feel that this is secondary to cholecysteomy. The fluid as per the surgeon in the extra hepatic space is likey to be non infected. The patient was in [place] in may, but denies any over seas travels, denies eating raw foods, he did have diarrhea a few weeks and has had it ongoing, last BM yesterday. 09/20 Patient seen examined, no acute overnight events, drain not drain from liver not draining as much this AM Repeat CT done, shows drain is now in normal liver parenchyma not the abcess, also the size of extrahepatic abcess is unchanged will need multiple drains as per radiology here and he does not have the necessary tools to do this. Called Dr Briceño to see if he can help. He will review the images and get back with me Pt bp is stable, cut back fluids xfer to tele status. 09/21 Pt seen examiend, bp stable now off bp meds, tolerating po diet well Hd ant abdominal drain placed by [facility], was ddoing well till last night, when while flushing the drain, he noticed severe pain at the site of the drain, with not much liquid coming out Plan to flush with cath flow today usg ordered to check if any residual fluid collection. creat is still 1.7, so will avoid CT with contrast. xfer to med surg Pertinent ROS: Denies headache, dizziness Denies chest pain, palpitations Denies cough or shortness of breath present abdominal pain during flusing, no nausea or vomiting. . - Constitutional Vitals: Vital Signs Temp Pulse Resp BP Pulse Ox 97.2 F 96 H 18 101/77 97 09/21/17 11:46 09/21/17 00:00 09/21/17 11:46 09/21/17 11:46 09/21/17 11:46 Period Temp Pulse Resp BP Sys/Davidson Pulse Ox Last 24 Hr 97.1 F-97.9 F 93-135 -18 84-112/57-92 88-99 Intake and Output 09/20/17 09/21/17 09/21/17 21:59 05:59 13:59 Intake Total 320 / 320 1167 / 1167 1389 / 1389 Output Total 525 / 525 405 / 405 627 / 627 Balance -205 / -205 762 / 762 762 / 762 Weight 189 lb 9.6 oz Intake & Output: Intake & Output 09/20/17 09/21/17 09/21/17 21:59 05:59 13:59 Intake Total 320 / 320 1167 / 1167 1389 / 1389 Output Total 525 / 525 405 / 405 627 / 627 Balance -205 / -205 762 / 762 762 / 762 Weight 189 lb 9.6 oz Intake: IV 200 / 200 1017 / 1017 669 / 669 Lactated Ringers 1,000 ml @ 125 0 / 0 817 / 817 519 / 519 mls/hr IV .Q8H [facility] Rx#: [id number] Zosyn 3.375 gm In Dextrose 5% 100 / 100 100 / 100 50 / 50 in Water 50 ml @ 100 mls/hr IV Q6H [facility] Rx#:[id number] Oral 120 / 120 150 / 150 720 / 720 Output: Drainage 5 / 5 2 / 2 Right Lateral Abdomen ABHINAV Drain 5 / 5 2 / 2 Void Amount 525 / 525 400 / 400 625 / 625 # of times incontinent of urine 0 / 0 Other: Meal Dinner snack Breakfast Percent of Meal Consumed 100% 100% 100% Feeding Ability Assist with Tray Set Up # Voids 1 1 Exam: Constitutional; Afebrile, cooperative, alert, not in distress. Eyes- No icterus, , No periorbital swelling Ears- Ext ear normal, hearing normal to conversation. Neck- Midline trachea, supple Respiratory system: Air Entry equal on both sides, No crackles or wheezing, no rhonchi. CVS- Rate rhythm regular, S1,S2 heard, no gallop, no rub. Abdomen- Soft ruq tenderness, bowel sounds present. 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 Medical - PN: Obj Da - Labs CBC & Chem 7: 09/21/17 03:30 09/21/17 03:30 Labs: Abnormal Lab Results 09/21/17 09/21/17 09/20/17 03:30 03:30 14:15 WBC RBC 3.24 L Hgb 10.0 L 10.9 L Hct 29.8 L 33.2 L POC Hct Plt Count MPV 7.0 L Gran % 78.2 H Lymph % (Auto) 11.3 L Gran # 8.4 H Lymph # (Auto) 1.2 L Cuming # (Auto) Metamyelocytes % Myelocytes % Platelet Estimate PT D-Dimer VBG Lactic Acid Sodium 132 L Chloride Carbon Dioxide POC Total CO2 Anion Gap POC BUN BUN Creatinine 1.7 H POC Creatinine Glucose 164 H POC Glucose Calcium POC WB Ioniz Calcium GGT 82 H AST ALT Alkaline Phosphatase 206 H Albumin 2.2 L Globulin 4.2 H Albumin/Globulin Ratio 0.5 L Triglycerides Urine Protein Urine Glucose (UA) Urine Urobilinogen Ur Leukocyte Esterase Urine WBC Amorphous Crystals Granular Casts 09/20/17 09/20/17 09/20/17 11:09 03:35 03:35 WBC 13.1 H RBC 3.38 L Hgb 10.4 L Hct 31.6 L POC Hct Plt Count MPV 6.9 L Gran % 79.1 H Lymph % (Auto) 9.0 L Gran # 10.4 H Lymph # (Auto) 1.2 L Cuming # (Auto) 1.3 H Metamyelocytes % Myelocytes % Platelet Estimate PT 14.6 H D-Dimer VBG Lactic Acid Sodium Chloride Carbon Dioxide POC Total CO2 Anion Gap POC BUN BUN 27 H Creatinine 1.7 H POC Creatinine Glucose POC Glucose Calcium 8.5 L POC WB Ioniz Calcium GGT 78 H AST 66 H ALT Alkaline Phosphatase 210 H Albumin 2.3 L Globulin 4.0 H Albumin/Globulin Ratio 0.6 L Triglycerides 181 H Urine Protein Urine Glucose (UA) Urine Urobilinogen Ur Leukocyte Esterase Urine WBC Amorphous Crystals Granular Casts 09/19/17 09/19/17 09/19/17 18:54 15:58 15:50 WBC RBC Hgb Hct POC Hct 37.0 L Plt Count MPV Gran % Lymph % (Auto) Gran # Lymph # (Auto) Cuming # (Auto) Metamyelocytes % Myelocytes % Platelet Estimate PT D-Dimer 5.54 H VBG Lactic Acid Sodium Chloride Carbon Dioxide POC Total CO2 18 L Anion Gap POC BUN 32 H BUN Creatinine POC Creatinine 2.5 H Glucose POC Glucose 218 H Calcium POC WB Ioniz Calcium 1.09 L GGT AST ALT Alkaline Phosphatase Albumin Globulin Albumin/Globulin Ratio Triglycerides Urine Protein 100 A Urine Glucose (UA) 150 A Urine Urobilinogen 4.0 A Ur Leukocyte Esterase 25 A Urine WBC 7 H Amorphous Crystals Few A Granular Casts 6 H 09/19/17 09/19/17 09/19/17 15:40 15:30 15:30 WBC 23.4 H RBC 4.26 L Hgb 13.0 L Hct 38.9 L POC Hct Plt Count 467 H MPV Gran % Lymph % (Auto) Gran # Lymph # (Auto) Cuming # (Auto) Metamyelocytes % 3 H Myelocytes % 2 H Platelet Estimate Increased A PT D-Dimer VBG Lactic Acid 3.0 H Sodium 127 L Chloride 90 L Carbon Dioxide 18 L POC Total CO2 Anion Gap 19.0 H POC BUN BUN 35 H Creatinine 2.7 H POC Creatinine Glucose 227 H POC Glucose Calcium POC WB Ioniz Calcium GGT AST 105 H ALT 43 H Alkaline Phosphatase 274 H Albumin 3.0 L Globulin 5.4 H Albumin/Globulin Ratio 0.6 L Triglycerides Urine Protein Urine Glucose (UA) Urine Urobilinogen Ur Leukocyte Esterase Urine WBC Amorphous Crystals Granular Casts Meds: Medications Dextrose (Dextrose 50%) 0 ml IV UD PRN PRN Reason: Hypoglycemia Diagnostic Test (Pha) (Accu-Chek) 1 each FS ACHS [facility] Famotidine (Pepcid) 20 mg IV HS [facility] Glucose (Insta-Glucose) 15 gm PO PRN PRN PRN Reason: Hypoglycemia Heparin Sodium (Porcine) (Heparin) 5,000 unit SQ Q12 [facility] Metronidazole (Flagyl) 500 mg in 100 mls @ 100 mls/hr IV Q8H [facility] Norepinephrine Bitartrate 16 (mg/ Sodium Chloride) 250 mls @ 9.37 mls/hr IV Q24HP PRN; Protocol; 10 MCG/MIN PRN Reason: TITRATE TO KEEP MAP > 65 Piperacillin Sod/Tazobactam (Sod 3.375 gm/ Dextrose) 50 mls @ 100 mls/hr IV Q6H [facility] Vancomycin HCl 1,500 mg/ (Sodium Chloride) 500 mls @ 333.3 mls/hr IV DAILY [facility] Insulin Human Lispro (Humalog) 0 unit SQ ACHS [facility] PRN Reason: Protocol Morphine Sulfate (Morphine) 2 - 4 mg IV Q2HP PRN PRN Reason: Severe Pain, PAIN LEVEL > 7 Ondansetron HCl (Zofran) 4 mg IV Q4-6HP PRN PRN Reason: Nausea And Vomiting Pantoprazole Sodium (Protonix) 40 mg PO BIDAC [facility] Simvastatin (Zocor) 40 mg PO DAILY [facility] Sodium Chloride (Saline Flush) 10 ml IV Q8 [facility] Vancomycin HCl (Vancomycin Per Pharmacy) 1 order IV UD [facility] Medical - PN: A/P - Time Spent With Patient Total time spent is greater than 50% in coordination of care (as documented) at patient's floor/unit and/or counseling patient: - Narrative A/P Narrative: A/P Septic shock- bp stable, resolved Pneumonthorax as per Radiologist at [facility], x ray done yesterday did not show any pneumothorax Pyogenic Liver abscess/ GPC bactermia- after cholecystectomy, IV antibiotics, IR to drain intra and extra hepatic abcesses. continue broad spectrum coverage for now. Microbiology is anaerobic GPC as per prelim, will get confirmation soon. Will need a colonoscopy to look for colon cancer/ colonic lesion. Will get CT abdomen to evaluate position of the catheter and residual abscess if cath flow does not improve patients drain. Hypotension - bp stable Lactic acidosis- resolved Acute on Chronic renal failure- creat stable at 1.7, continue to monitor. diabetes mellitus- ssi insulin for glucose control Surgery aware, does not think abbess related to recent Sx pt had colonoscopy done [address] awad, notes 1 Adenomatous polyp and 2 HP. Will need repeat bowel imaging. DVT hep sq Diet carb consistent Full code. Medical - PN: Qual - VTE Deep Vein Thrombosis/Pulmonary Embolism Present on Admission: No
--- NOTE | 2017-09-21 14:59 | Ultrasound Report ---
History: Follow-up liver abscess FINDINGS: A central portion liver is very heterogeneous and there are areas of brightly echogenic material. This may be air. There is a small liquefied component of the abscess located along the inferior border. It measures 3.1 x 2.4 cm. There are no catheter is identified within the liver. The collection which was seen on the prior CT scan inferior to the liver is not documented on this study. The gallbladder is absent. The bile ducts are nondilated. IMPRESSION: Phlegmon in the central portion of the right lobe Small residual partially liquefied abscess along the inferior border of the right lobe Interpreted and Authenticated by: Joaquín Duckworth 09/21/17
--- NOTE | 2017-09-21 20:09 | Cat Scan Report ---
History: Liver abscess and poor drainage from a newly inserted catheter below the right lobe of liver TECHNIQUE: The patient was imaged without contrast from the diaphragm to the top of the SI joints. Sagittal and coronal reformats were created. There is moderate elevation right diaphragm. Bands of discoid atelectasis are present in the posterior lateral basal segments of the right lower lobe. There is no pneumothorax or pleural effusion. There is an indistinct low-attenuation lesion centrally in the right lobe of the liver which contains a few bubbles of air. There are also surgical clips along the inferior margin of this lesion. Other clips are present in the gallbladder fossa. This lesion measures approximate 6.7 x 8.3 cm in size. Measures 7.3 x 8.9 cm on 09/20/17. The previously seen drainage catheter within this abscess cavity has been removed. There is a second component of the abscess located along the inferior aspect of the liver, extending anteriorly and inferiorly to the hepatic flexure and behind the rectus abdominis muscle and external oblique muscle. A percutaneous drainage catheter has been inserted into the second abscess collection. The pigtail of the catheter is located within the inferior lumen of this abscess pocket. This abscess collection has been largely decompressed compared with yesterday's CT scan. A tiny bubble of intraperitoneal air is seen anterior to the left lobe of liver. No ascites is present. There is no pneumothorax. Small nonobstructing stone is present in the upper pole calyx of the right kidney. Pancreas, spleen and left kidney appear normal. IMPRESSION: Improving abscess/phlegmon centrally in the right lobe of the liver. Shrinking extrahepatic abscess. The pigtail catheter is well-positioned within the inferior aspect of the collection. Interpreted and Authenticated by: Joaquín Duckworth 09/21/17
[2017-09-21] MEDS ORDERED: FAMOTIDINE/PF 20 MG/2 ML VIAL IV SCH (21:00)
[2017-09-22 04:52] LABS: Basophils # (Auto) 0 K/mcL (0.0-0.3); Basophils % (Auto) 0.3 % (0.0-2.0); Eosinophils # (Auto) 0.3 K/mcL (0.0-0.7); Eosinophils % (Auto) 3.4 % (0.0-7.0); Granulocytes % (Auto) 73.8 % (38.0-78.0); Lymphocytes # (Auto) 1.5 K/mcL (1.5-4.8); Lymphocytes % (Auto) 14.8 % (15.5-49.0); Mean Cell Volume 92.9 fL (80.0-100.0); Mean Corpuscular HGB Conc 33.1 g/dL (31.0-36.0); Mean Corpuscular Hemoglobin 30.8 pg (26.0-34.0); Monocytes # (Auto) 0.8 K/mcL (0.1-0.9); Monocytes % (Auto) 7.7 % (1.0-12.0); Platelet Count 387 K/mcL (140-440); RBC 3.49 M/mcL (4.50-5.90); Red Cell Distribution Width 13.2 % (11.5-14.5)
[2017-09-22 05:16] LABS: ALT/SGPT 17 U/l (0-40); Albumin 2.3 gm/dL (3.2-5.2); Albumin/Globulin Ratio 0.5 (1.0-2.3); Alkaline Phosphatase 190 U/L (39-117); Bilirubin,Direct < 0.2 mg/dL (0.0-0.3); Blood Urea Nitrogen 13 mg/dl (8-23); Gamma Glutamyl Transpeptidase 74 U/L (8-61); Uric Acid 2.6 mg/dL (2.5-8.0)
[2017-09-22] MEDS: 0.9 % SODIUM CHLORIDE 10 ML SYRINGE IV SCH ×4 (06:25→23:34)
[2017-09-22] MEDS: PIPERACILLIN SODIUM/TAZOBACTAM 3.375 GM in DEXTROSE 5% IN WATER 50 ML IV SCH ×4 (06:25→23:04)
[2017-09-22] MEDS: metroNIDAZOLE 500 MG/100 ML BAG IV SCH ×3 (06:45→21:56)
[2017-09-22] MEDS: PANTOPRAZOLE 40 MG TABLET PO SCH ×2 (07:09→16:48)
[2017-09-22] MEDS: INSULIN LISPRO 1 UNIT/0.01 ML UNIT SQ SCH ×4 (07:14→20:48)
[2017-09-22] MEDS: HEPARIN 5,000 UNIT/ML VIAL SQ SCH ×2 (08:52→20:49)
[2017-09-22] MEDS: SIMVASTATIN 40 MG TABLET PO SCH (08:53)
[2017-09-22] MEDS ORDERED: VANCOMYCIN 1,500 MG in 0.9 % SODIUM CHLORIDE 500 ML IV SCH (09:00)
--- NOTE | 2017-09-22 10:36 | Internal Med Progress Note ---
Medical - PN: Subj Patient information: Note initiated : 09/22/17 at 10:34 am Service Date, if different from initiated Date: [] Patient: Roosevelt Rodriguez a 62 y/o M admitted on 09/19/17 for Shortness of Breath/Sepsis, Liver Abscess. Chief Complaint: [] Interval history: Mr. Rodriguez is a 62 year old Male with h/o dm, htn, hld, recent cholecystectomy, presents to the er for not feeling well over 2-3 weeks, the patient had a cholecystetomy done 08/13/17, the procedure went well and the patient was feeling good after the procedure. AT the end of august, he started to notice that he was more tired than usual, he was weak, and had shortness of breath on exertion, dizziness, decreased appetitie,fevers, chills and rigors. The patient was using aspirin/ tylenol to help with his fevers, and was thinking he would just fight this out, thinking its a viral syndrome. HE was convinced by family to eventually come to the hospital for evaluation. In the hospital he was noted to be hypotensive, he was afebrile, labs showed leucocytosis, renal failure, elevated procalcitonin to 72, elevaetd lft. Pt underwent a CT abdomen which showed a liver abscess, USG done, initially with the thought of a biopsy, but only pus came out, so a drain was placed. patient was admitted to the hospital for further management I spoke with the surgeon, Dr Pride who reviewed the images and does not feel that this is secondary to cholecysteomy. The fluid as per the surgeon in the extra hepatic space is likey to be non infected. The patient was in [place] in may, but denies any over seas travels, denies eating raw foods, he did have diarrhea a few weeks and has had it ongoing, last BM yesterday. 09/20 Patient seen examined, no acute overnight events, drain not drain from liver not draining as much this AM Repeat CT done, shows drain is now in normal liver parenchyma not the abcess, also the size of extrahepatic abcess is unchanged will need multiple drains as per radiology here and he does not have the necessary tools to do this. Called Dr Briceño to see if he can help. He will review the images and get back with me Pt bp is stable, cut back fluids xfer to tele status. 09/21 Pt seen examiend, bp stable now off bp meds, tolerating po diet well Hd ant abdominal drain placed by [facility] radiology, was ddoing well till last night, when while flushing the drain, he noticed severe pain at the site of the drain, with not much liquid coming out Plan to flush with cath flow today usg ordered to check if any residual fluid collection. creat is still 1.7, so will avoid CT with contrast. xfer to med surg 09/22 Pt seen examined, no acute issues Pain in the abdomen better, drain draining now after 2mg cathflow Will conitnue to monitor labs stable, creat still at 1.7 Pt ambulatory on the floor tolerating po diet well Pertinent ROS: Denies headache, dizziness Denies chest pain, palpitations Denies cough or shortness of breath Denies abdominal pain, nausea or vomiting. - Constitutional Vitals: Vital Signs Temp Pulse Resp BP Pulse Ox 97.7 F 83 16 115/79 96 09/22/17 06:28 09/22/17 04:00 09/22/17 08:00 09/22/17 06:28 09/22/17 08:00 Period Temp Pulse Resp BP Sys/Davidson Pulse Ox Last 24 Hr 97.2 F-98.8 F 78-88 16-20 98-115/62-79 96-98 Intake and Output 09/21/17 09/22/17 09/22/17 21:59 05:59 13:59 Intake Total 390 / 390 250 / 250 650 / 650 Output Total 479 / 479 Balance -89 / -89 235 / 235 650 / 650 Weight 192 lb Intake & Output: Intake & Output 09/21/17 09/22/17 09/22/17 21:59 05:59 13:59 Intake Total 390 / 390 250 / 250 650 / 650 Output Total 479 / 479 Balance -89 / -89 235 / 235 650 / 650 Weight 192 lb Intake: IV 150 / 150 150 / 150 50 / 50 Zosyn 3.375 gm In Dextrose 5% 50 / 50 50 / 50 50 / 50 in Water 50 ml @ 100 mls/hr IV Q6H [facility] Rx#:[id number] Oral 240 / 240 100 / 100 600 / 600 Output: Drainage Right Lateral Abdomen ABHINAV Drain Void Amount 475 / 475 # of times incontinent of urine 0 / 0 Other: Meal Dinner Breakfast Percent of Meal Consumed 100% 100% Feeding Ability Independent Independent Stool Size Small Stool Color Brown Stool Consistency Soft # Voids 1 1 1 Exam: Constitutional; Afebrile, cooperative, alert, not in distress. Eyes- No icterus, , No periorbital swelling Ears- Ext ear normal, hearing normal to conversation. Neck- Midline trachea, supple Respiratory system: Air Entry equal on both sides, No crackles or wheezing, no rhonchi. CVS- Rate rhythm regular, S1,S2 heard, no gallop, no rub. Abdomen- Soft nontender abdomen, no organomegaly, no tenderness, no guarding or rigidity, [employer]- AOOx3, moving all extremities, no gross focal deficit noted. Medical - PN: Obj Da - Labs CBC & Chem 7: 09/22/17 03:45 09/22/17 03:45 Labs: Abnormal Lab Results 09/22/17 09/22/17 09/21/17 03:45 03:45 03:30 WBC RBC 3.49 L Hgb 10.7 L Hct 32.5 L POC Hct Plt Count MPV 6.7 L Gran % Lymph % (Auto) 14.8 L Gran # Lymph # (Auto) [place] # (Auto) Metamyelocytes % Myelocytes % Platelet Estimate PT D-Dimer VBG Lactic Acid Sodium 132 L Chloride Carbon Dioxide POC Total CO2 Anion Gap POC BUN BUN Creatinine 1.7 H 1.7 H POC Creatinine Glucose 112 H 164 H POC Glucose Calcium POC WB Ioniz Calcium Phosphorus 4.9 H GGT 74 H 82 H AST ALT Alkaline Phosphatase 190 H 206 H Albumin 2.3 L 2.2 L Globulin 4.3 H 4.2 H Albumin/Globulin Ratio 0.5 L 0.5 L Triglycerides Urine Protein Urine Glucose (UA) Urine Urobilinogen Ur Leukocyte Esterase Urine WBC Amorphous Crystals Granular Casts 09/21/17 09/20/17 09/20/17 03:30 14:15 11:09 WBC RBC 3.24 L Hgb 10.0 L 10.9 L Hct 29.8 L 33.2 L POC Hct Plt Count MPV 7.0 L Gran % 78.2 H Lymph % (Auto) 11.3 L Gran # 8.4 H Lymph # (Auto) 1.2 L [place] # (Auto) Metamyelocytes % Myelocytes % Platelet Estimate PT 14.6 H D-Dimer VBG Lactic Acid Sodium Chloride Carbon Dioxide POC Total CO2 Anion Gap POC BUN BUN Creatinine POC Creatinine Glucose POC Glucose Calcium POC WB Ioniz Calcium Phosphorus GGT AST ALT Alkaline Phosphatase Albumin Globulin Albumin/Globulin Ratio Triglycerides Urine Protein Urine Glucose (UA) Urine Urobilinogen Ur Leukocyte Esterase Urine WBC Amorphous Crystals Granular Casts 09/20/17 09/20/17 09/19/17 03:35 03:35 18:54 WBC 13.1 H RBC 3.38 L Hgb 10.4 L Hct 31.6 L POC Hct Plt Count MPV 6.9 L Gran % 79.1 H Lymph % (Auto) 9.0 L Gran # 10.4 H Lymph # (Auto) 1.2 L [place] # (Auto) 1.3 H Metamyelocytes % Myelocytes % Platelet Estimate PT D-Dimer 5.54 H VBG Lactic Acid Sodium Chloride Carbon Dioxide POC Total CO2 Anion Gap POC BUN BUN 27 H Creatinine 1.7 H POC Creatinine Glucose POC Glucose Calcium 8.5 L POC WB Ioniz Calcium Phosphorus GGT 78 H AST 66 H ALT Alkaline Phosphatase 210 H Albumin 2.3 L Globulin 4.0 H Albumin/Globulin Ratio 0.6 L Triglycerides 181 H Urine Protein Urine Glucose (UA) Urine Urobilinogen Ur Leukocyte Esterase Urine WBC Amorphous Crystals Granular Casts 09/19/17 09/19/17 09/19/17 15:58 15:50 15:40 WBC RBC Hgb Hct POC Hct 37.0 L Plt Count MPV Gran % Lymph % (Auto) Gran # Lymph # (Auto) [place] # (Auto) Metamyelocytes % Myelocytes % Platelet Estimate PT D-Dimer VBG Lactic Acid 3.0 H Sodium Chloride Carbon Dioxide POC Total CO2 18 L Anion Gap POC BUN 32 H BUN Creatinine POC Creatinine 2.5 H Glucose POC Glucose 218 H Calcium POC WB Ioniz Calcium 1.09 L Phosphorus GGT AST ALT Alkaline Phosphatase Albumin Globulin Albumin/Globulin Ratio Triglycerides Urine Protein 100 A Urine Glucose (UA) 150 A Urine Urobilinogen 4.0 A Ur Leukocyte Esterase 25 A Urine WBC 7 H Amorphous Crystals Few A Granular Casts 6 H 09/19/17 09/19/17 15:30 15:30 WBC 23.4 H RBC 4.26 L Hgb 13.0 L Hct 38.9 L POC Hct Plt Count 467 H MPV Gran % Lymph % (Auto) Gran # Lymph # (Auto) [place] # (Auto) Metamyelocytes % 3 H Myelocytes % 2 H Platelet Estimate Increased A PT D-Dimer VBG Lactic Acid Sodium 127 L Chloride 90 L Carbon Dioxide 18 L POC Total CO2 Anion Gap 19.0 H POC BUN BUN 35 H Creatinine 2.7 H POC Creatinine Glucose 227 H POC Glucose Calcium POC WB Ioniz Calcium Phosphorus GGT AST 105 H ALT 43 H Alkaline Phosphatase 274 H Albumin 3.0 L Globulin 5.4 H Albumin/Globulin Ratio 0.6 L Triglycerides Urine Protein Urine Glucose (UA) Urine Urobilinogen Ur Leukocyte Esterase Urine WBC Amorphous Crystals Granular Casts Meds: Medications Dextrose (Dextrose 50%) 0 ml IV UD PRN PRN Reason: Hypoglycemia Diagnostic Test (Pha) (Accu-Chek) 1 each FS ACHS [facility] Last Admin: 09/22/17 07:10 Dose: 1 each Glucose (Insta-Glucose) 15 gm PO PRN PRN PRN Reason: Hypoglycemia Heparin Sodium (Porcine) (Heparin) 5,000 unit SQ Q12 [facility] Last Admin: 09/22/17 08:52 Dose: 5,000 unit Metronidazole (Flagyl) 500 mg in 100 mls @ 100 mls/hr IV Q8H [facility] Last Admin: 09/22/17 06:45 Dose: 100 mls/hr Piperacillin Sod/Tazobactam (Sod 3.375 gm/ Dextrose) 50 mls @ 100 mls/hr IV Q6H [facility] Last Infusion: 09/22/17 07:15 Dose: Infused Insulin Human Lispro (Humalog) 0 unit SQ [facility] PRN Reason: Protocol Last Admin: 09/22/17 07:14 Dose: Not Given Morphine Sulfate (Morphine) 2 - 4 mg IV Q2HP PRN PRN Reason: Severe Pain, PAIN LEVEL > 7 Ondansetron HCl (Zofran) 4 mg IV Q4-6HP PRN PRN Reason: Nausea And Vomiting Pantoprazole Sodium (Protonix) 40 mg PO BIDAC [facility] Last Admin: 09/22/17 07:09 Dose: 40 mg Simvastatin (Zocor) 40 mg PO DAILY [facility] Last Admin: 09/22/17 08:53 Dose: 40 mg Sodium Chloride (Saline Flush) 10 ml IV Q8 [facility] Last Admin: 09/22/17 06:25 Dose: 10 ml Medical - PN: A/P - Time Spent With Patient Total time spent is greater than 50% in coordination of care (as documented) at patient's floor/unit and/or counseling patient: - Narrative A/P Narrative: A/P Septic shock- bp stable, resolved Pneumonthorax as per Radiologist at [facility], x ray done yesterday did not show any pneumothorax Pyogenic Liver abscess/ GPC bactermia/ Peptostreptoccous micros isolated - after cholecystectomy, IV antibiotics, IR to drain intra and extra hepatic abcesses. d/c vancomycin, continue on flagyl and zosyn, will need picc if repeat cultures are negative. 4-6 weeks of IV abx, likely flagyl and penicillin group abx. Will need a colonosocpy as outpatient to evaluate any colonic source for this bacteria/ GI referral/ Dr Awad performed the last colonoscopy. Hypotension - bp stable, Home bp meds not yet started will start if bp improves. Lactic acidosis- resolved Acute on Chronic renal failure- creat stable at 1.7, continue to monitor. diabetes mellitus- ssi insulin for glucose control Surgery aware, does not think abbess related to recent Sx pt had colonoscopy done [address] awad, notes 1 Adenomatous polyp and 2 HP. Will need repeat bowel imaging. DVT hep sq Diet carb consistent Full code. Medical - PN: Qual - VTE Deep Vein Thrombosis/Pulmonary Embolism Present on Admission: No
[2017-09-23] MEDS: metroNIDAZOLE 500 MG/100 ML BAG IV SCH ×3 (05:00→21:15)
[2017-09-23] MEDS: 0.9 % SODIUM CHLORIDE 10 ML SYRINGE IV SCH ×5 (05:01→20:43)
[2017-09-23 05:54] LABS: Basophils # (Auto) 0 K/mcL (0.0-0.3); Basophils % (Auto) 0.2 % (0.0-2.0); Eosinophils # (Auto) 0.4 K/mcL (0.0-0.7); Eosinophils % (Auto) 3.9 % (0.0-7.0); Lymphocytes # (Auto) 1.5 K/mcL (1.5-4.8); Lymphocytes % (Auto) 15.7 % (15.5-49.0); Mean Cell Volume 92.7 fL (80.0-100.0); Mean Corpuscular HGB Conc 32.7 g/dL (31.0-36.0); Mean Corpuscular Hemoglobin 30.3 pg (26.0-34.0); Monocytes # (Auto) 0.8 K/mcL (0.1-0.9); Monocytes % (Auto) 8.2 % (1.0-12.0); Platelet Count 406 K/mcL (140-440); RBC 3.72 M/mcL (4.50-5.90); Red Cell Distribution Width 12.9 % (11.5-14.5)
[2017-09-23] MEDS: PIPERACILLIN SODIUM/TAZOBACTAM 3.375 GM in DEXTROSE 5% IN WATER 50 ML IV SCH ×4 (06:06→23:45)
[2017-09-23 06:33] LABS: ALT/SGPT 14 U/l (0-40); Albumin 2.6 gm/dL (3.2-5.2); Albumin/Globulin Ratio 0.6 (1.0-2.3); Alkaline Phosphatase 170 U/L (39-117); Bilirubin,Direct < 0.2 mg/dL (0.0-0.3); Blood Urea Nitrogen 9 mg/dl (8-23); Gamma Glutamyl Transpeptidase 72 U/L (8-61); Uric Acid 2.6 mg/dL (2.5-8.0)
[2017-09-23] MEDS: INSULIN LISPRO 1 UNIT/0.01 ML UNIT SQ SCH ×4 (07:22→20:41)
[2017-09-23] MEDS: PANTOPRAZOLE 40 MG TABLET PO SCH ×2 (07:58→17:40)
[2017-09-23] MEDS ORDERED: 0.9 % SODIUM CHLORIDE 10 ML SYRINGE IV PRN (08:53)
[2017-09-23] MEDS: SIMVASTATIN 40 MG TABLET PO SCH (10:00)
--- NOTE | 2017-09-23 10:08 | Internal Med Progress Note ---
Medical - PN: Subj Patient information: Note initiated : 09/23/17 at 10:05 am Service Date, if different from initiated Date: [] Patient: Roosevelt Rodriguez a 62 y/o M admitted on 09/19/17 for Shortness of Breath/Sepsis, Liver Abscess. Chief Complaint: [] Interval history: Mr. Rodriguez is a 62 year old Male with h/o dm, htn, hld, recent cholecystectomy, presents to the er for not feeling well over 2-3 weeks, the patient had a cholecystetomy done 08/13/17, the procedure went well and the patient was feeling good after the procedure. AT the end of august, he started to notice that he was more tired than usual, he was weak, and had shortness of breath on exertion, dizziness, decreased appetitie,fevers, chills and rigors. The patient was using aspirin/ tylenol to help with his fevers, and was thinking he would just fight this out, thinking its a viral syndrome. HE was convinced by family to eventually come to the hospital for evaluation. In the hospital he was noted to be hypotensive, he was afebrile, labs showed leucocytosis, renal failure, elevated procalcitonin to 72, elevaetd lft. Pt underwent a CT abdomen which showed a liver abscess, USG done, initially with the thought of a biopsy, but only pus came out, so a drain was placed. patient was admitted to the hospital for further management I spoke with the surgeon, Dr Pride who reviewed the images and does not feel that this is secondary to cholecysteomy. The fluid as per the surgeon in the extra hepatic space is likey to be non infected. The patient was in [place] in may, but denies any over seas travels, denies eating raw foods, he did have diarrhea a few weeks and has had it ongoing, last BM yesterday. 09/20 Patient seen examined, no acute overnight events, drain not drain from liver not draining as much this AM Repeat CT done, shows drain is now in normal liver parenchyma not the abcess, also the size of extrahepatic abcess is unchanged will need multiple drains as per radiology here and he does not have the necessary tools to do this. Called Dr Briceño to see if he can help. He will review the images and get back with me Pt bp is stable, cut back fluids xfer to tele status. 09/21 Pt seen examiend, bp stable now off bp meds, tolerating po diet well Hd ant abdominal drain placed by [facility] radiology, was ddoing well till last night, when while flushing the drain, he noticed severe pain at the site of the drain, with not much liquid coming out Plan to flush with cath flow today usg ordered to check if any residual fluid collection. creat is still 1.7, so will avoid CT with contrast. xfer to med surg 09/22 Pt seen examined, no acute issues Pain in the abdomen better, drain draining now after 2mg cathflow Will conitnue to monitor labs stable, creat still at 1.7 Pt ambulatory on the floor tolerating po diet well 09/23-patient doing well. No overnight events. No concerns per staff. Afebrile. White count 9.3. Creatinine down from 2.5-1.5. Patient ambulating and tolerating diet. PICC line placement today. CT abdomen in a.m. to assess interval drainage of abscess. - Constitutional Vitals: Vital Signs Temp Pulse Resp BP Pulse Ox 96.7 F L 79 16 95/65 98 09/23/17 07:24 09/23/17 07:26 09/23/17 07:26 09/23/17 07:24 09/23/17 07:26 Period Temp Pulse Resp BP Sys/Davidson Pulse Ox Last 24 Hr 96.7 F-98.8 F 79-87 16-20 95-122/65-81 95-98 Intake and Output 09/22/17 09/23/17 09/23/17 21:59 05:59 13:59 Intake Total 1999 350 / 350 150 / 150 Output Total 1809 Balance 190 / 190 345 / 345 150 / 150 Weight 188 lb 8 oz Intake & Output: Intake & Output 09/22/17 09/23/17 09/23/17 21:59 05:59 13:59 Intake Total 1999 350 / 350 150 / 150 Output Total 1809 Balance 190 / 190 345 / 345 150 / 150 Weight 188 lb 8 oz Intake: IV 150 / 150 150 / 150 150 / 150 Zosyn 3.375 gm In Dextrose 5% 50 / 50 50 / 50 50 / 50 in Water 50 ml @ 100 mls/hr IV Q6H [facility] Rx#:[id number] Oral 850 / 850 200 / 200 GI Tube Flush 1000 / 1000 Output: Drainage 5 / 5 Right Lateral Abdomen ABHINAV Drain 5 / 5 Void Amount 1800 / 1800 Other: Meal Sherbert Ice Cr Percent of Meal Consumed 100% Feeding Ability Independent Stool Size Small Stool Color Brown Stool Consistency Soft # Voids 1 1 General appearance: cooperative, no acute distress Exam: Alert oriented Nonlabored breathing Drain output 15 cc No anxiety or agitation Medical - PN: Obj Da - Labs CBC & Chem 7: 09/23/17 04:12 09/23/17 04:12 Labs: Abnormal Lab Results 09/23/17 09/23/17 09/22/17 04:12 04:12 03:45 RBC 3.72 L Hgb 11.3 L Hct 34.5 L MPV 6.7 L Gran % Lymph % (Auto) Gran # Lymph # (Auto) PT Sodium Creatinine 1.5 H 1.7 H Glucose 130 H 112 H Phosphorus 4.9 H GGT 72 H 74 H Alkaline Phosphatase 170 H 190 H Albumin 2.6 L 2.3 L Globulin 4.4 H 4.3 H Albumin/Globulin Ratio 0.6 L 0.5 L 09/22/17 09/21/17 09/21/17 03:45 03:30 03:30 RBC 3.49 L 3.24 L Hgb 10.7 L 10.0 L Hct 32.5 L 29.8 L MPV 6.7 L 7.0 L Gran % 78.2 H Lymph % (Auto) 14.8 L 11.3 L Gran # 8.4 H Lymph # (Auto) 1.2 L PT Sodium 132 L Creatinine 1.7 H Glucose 164 H Phosphorus GGT 82 H Alkaline Phosphatase 206 H Albumin 2.2 L Globulin 4.2 H Albumin/Globulin Ratio 0.5 L 09/20/17 09/20/17 14:15 11:09 RBC Hgb 10.9 L Hct 33.2 L MPV Gran % Lymph % (Auto) Gran # Lymph # (Auto) PT 14.6 H Sodium Creatinine Glucose Phosphorus GGT Alkaline Phosphatase Albumin Globulin Albumin/Globulin Ratio Meds: Medications Dextrose (Dextrose 50%) 0 ml IV UD PRN PRN Reason: Hypoglycemia Diagnostic Test (Pha) (Accu-Chek) 1 each FS ACHS [facility] Last Admin: 09/23/17 07:22 Dose: 1 each Glucose (Insta-Glucose) 15 gm PO PRN PRN PRN Reason: Hypoglycemia Heparin Sodium (Porcine) (Heparin) 5,000 unit SQ Q12 [facility] Last Admin: 09/22/17 20:49 Dose: 5,000 unit Heparin Sodium (Porcine) (Heparin Flush) 2 ml IV Q12 [facility] Metronidazole (Flagyl) 500 mg in 100 mls @ 100 mls/hr IV Q8H [facility] Last Infusion: 09/23/17 07:24 Dose: Infused Piperacillin Sod/Tazobactam (Sod 3.375 gm/ Dextrose) 50 mls @ 100 mls/hr IV Q6H [facility] Last Infusion: 09/23/17 07:23 Dose: Infused Insulin Human Lispro (Humalog) 0 unit SQ [facility] PRN Reason: Protocol Last Admin: 09/23/17 07:22 Dose: Not Given Morphine Sulfate (Morphine) 2 - 4 mg IV Q2HP PRN PRN Reason: Severe Pain, PAIN LEVEL > 7 Ondansetron HCl (Zofran) 4 mg IV Q4-6HP PRN PRN Reason: Nausea And Vomiting Pantoprazole Sodium (Protonix) 40 mg PO BIDAC [facility] Last Admin: 09/23/17 07:58 Dose: 40 mg Simvastatin (Zocor) 40 mg PO DAILY [facility] Last Admin: 09/22/17 08:53 Dose: 40 mg Sodium Chloride (Saline Flush) 10 ml IV Q8 [facility] Last Admin: 09/23/17 05:01 Dose: 10 ml Sodium Chloride (Saline Flush) 10 ml IV UD PRN PRN Reason: FLUSH Sodium Chloride (Saline Flush) 10 ml IV Q12 [facility] Medical - PN: A/P - Time Spent With Patient Total time spent is greater than 50% in coordination of care (as documented) at patient's floor/unit and/or counseling patient: 15 - 24 minutes - Narrative A/P Narrative: A/P * Septic shock-clinically resolved. Secondary to pyogenic liver abscess with bacteremia. * Pyogenic liver abscess -Peptostreptococcus micros isolated - on broad antibiotic coverage. Status post IR guided drain placement. Post cholecystectomy. Continue flagyl and zosyn. PICC line placement today for 6 weeks IV antibiotics. Outpatient colonoscopy/repeat CT for follow-up * History of hypertension-currently normotensive-continue home meds on hold * Acute on Chronic renal failure- creat down from 2.5-1.5 * diabetes mellitus- ssi insulin for glucose control * Prophylaxis subcutaneous heparin * Full code Plan * Repeat CT in a.m. * PICC line placement * Antibiotics for 4-6 weeks * Surgery aware, does not think absess related to recent Sx * pt had colonoscopy done [address] awad, notes 1 Adenomatous polyp and 2 HP. Will need repeat bowel imaging. Medical - PN: Qual - VTE Deep Vein Thrombosis/Pulmonary Embolism Present on Admission: No
--- NOTE | 2017-09-23 13:09 | XRay Report ---
CLINICAL INFORMATION: PICC PLACEMENT COMPARISON: 09/20/2017 FINDINGS: PICC line tip overlies the SVC/right atrial junction. Cardiomediastinal silhouette and pulmonary vessels are normal for technique. Lungs are clear. No effusions IMPRESSION: No acute disease. PICC line in satisfactory position Interpreted and Authenticated by: Mark Smart 09/23/17
[2017-09-23] MEDS: HEPARIN 5,000 UNIT/ML VIAL SQ SCH ×2 (13:25→20:42)
[2017-09-24] MEDS: PIPERACILLIN SODIUM/TAZOBACTAM 3.375 GM in DEXTROSE 5% IN WATER 50 ML IV SCH ×3 (05:38→17:47)
[2017-09-24] MEDS: 0.9 % SODIUM CHLORIDE 10 ML SYRINGE IV SCH ×3 (06:29→12:51)
[2017-09-24] MEDS: metroNIDAZOLE 500 MG/100 ML BAG IV SCH ×2 (06:29→13:40)
[2017-09-24 06:38] LABS: Basophils # (Auto) 0 K/mcL (0.0-0.3); Basophils % (Auto) 0.4 % (0.0-2.0); Eosinophils # (Auto) 0.5 K/mcL (0.0-0.7); Eosinophils % (Auto) 4.4 % (0.0-7.0); Granulocytes % (Auto) 72.4 % (38.0-78.0); Lymphocytes # (Auto) 1.6 K/mcL (1.5-4.8); Lymphocytes % (Auto) 14.5 % (15.5-49.0); Mean Corpuscular HGB Conc 33.4 g/dL (31.0-36.0); Mean Corpuscular Hemoglobin 30.8 pg (26.0-34.0); Monocytes # (Auto) 0.9 K/mcL (0.1-0.9); Monocytes % (Auto) 8.3 % (1.0-12.0); Platelet Count 459 K/mcL (140-440); RBC 3.87 M/mcL (4.50-5.90); Red Cell Distribution Width 13.3 % (11.5-14.5)
[2017-09-24 07:05] LABS: ALT/SGPT 13 U/l (0-40); Albumin/Globulin Ratio 0.7 (1.0-2.3); Alkaline Phosphatase 152 U/L (39-117); Bilirubin,Direct < 0.2 mg/dL (0.0-0.3); Blood Urea Nitrogen 9 mg/dl (8-23); Gamma Glutamyl Transpeptidase 68 U/L (8-61); Uric Acid 2.7 mg/dL (2.5-8.0)
[2017-09-24] MEDS: PANTOPRAZOLE 40 MG TABLET PO SCH ×2 (07:46→17:31)
[2017-09-24] MEDS: INSULIN LISPRO 1 UNIT/0.01 ML UNIT SQ SCH ×3 (07:48→17:29)
[2017-09-24] MEDS: SIMVASTATIN 40 MG TABLET PO SCH (09:27)
[2017-09-24] MEDS: HEPARIN 5,000 UNIT/ML VIAL SQ SCH (09:28)
--- NOTE | 2017-09-24 15:53 | Cat Scan Report ---
CLINICAL INFORMATION: Follow-up liver and subhepatic abscesses COMPARISON: 09/20/2017 and 09/22/[address] TECHNIQUE: 0.625 mm helical slices were obtained from the mid heart through the subtrochanteric regions. Following reconstruction, 2.5 mm sagittal, coronal and axial reformatted images were processed and reviewed at bone and soft tissue windows.The exam was performed using radiation dose optimization techniques including, but not limited to, automated exposure control, adjustment of the mA and/or kV according to patient size and use of iterative reconstruction technique. FINDINGS: Lung bases show no abnormality - no effusions. The visualized heart is normal Images through the abdomen a persistent multiloculated abscess in the right hepatic lobe spanning 7.8 x 7.3 cm. The pigtail catheter, previously draining this abscess is no longer present. Remaining noncontrasted liver is unremarkable. There is also a pigtail drain within the subhepatic fluid collection in stable position. This particular collection is completely resolved however there is a small amount of fluid in the mesenteric cavity superior to this region which is likely phlegmon The noncontrasted kidneys show only a 2 mm nonobstructing stone superior calyx the right kidney - no other abnormality. The adrenal glands, spleen, pancreas and aorta are normal. There is no free air, free fluid or adenopathy. The stomach small/large bowel are normal. Images through the pelvis show prostate, seminal vesicles and urinary bladder to be normal. Bone windows show no osseous abnormality IMPRESSION: Persistent 7.8 cm abscess in the right hepatic lobe. Percutaneous drain is no longer present. Stable drain position in the location of a subhepatic abscess. This is completely resolved and should be removed. 2 mm nonobstructing stone superior calyx right kidney Interpreted and Authenticated by: Mark Smart 09/24/17
--- NOTE | 2017-09-24 17:34 | Discharge Summary ---
Medical - DS: Prov Patient information: Note initiated : 09/24/17 at 5:29 pm Service Date, if different from initiated Date: [] Patient: Roosevelt Rodriguez 62 y/o M admitted on 09/19/17 for Shortness of Breath/Sepsis, Liver Abscess. Chief Complaint: [] Date of admission: 09/19/17 20:16 Discharge date: 09/24/17 Primary care physician: Buddy Obregon Consults: 09/19/17 17:55 Consult to Physician [CONS] Stat Comment: Consulting Provider: Philly Cho Reason For Exam: Physician to Consult 09/19/17 18:03 Consult to Physician [CONS] Stat Comment: Consulting Provider: Ev Pride Reason For Exam: Physician to Consult Medical - DS: Meds - Discharge Medications Active and Home Medications: Home Medications TriMix 30 mcg INTRACAVIT DIRECTED #2 09/09/16 [Rx Confirmed 09/19/17 Last Taken Unknown] amlodipine 5 mg tablet 5 mg PO QDAY #30 tab 02/14/17 [Rx Confirmed 09/19/17 Last Taken 08/12/17] spironolactone 25 mg tablet 25 mg PO QAM #30 tab 06/30/17 [Rx Confirmed Last Taken 08/12/17] rosuvastatin 10 mg tablet 10 mg PO QDAY #90 tab 07/07/17 [Rx Confirmed 09/19/17 Last Taken 08/12/17] glipizide ER 10 mg tablet, extended release 24 hr 10 mg PO QDAY #90 tab [Rx Confirmed 09/19/17 Last Taken 08/12/17] sitagliptin 25 mg tablet 25 mg PO QDAY #90 tab 08/06/17 [Rx Confirmed 09/19/17 Last Taken 08/12/17] losartan 50 mg tablet 50 mg PO QDAY #30 tab 08/11/17 [Rx Confirmed 09/19/17 Last Taken 08/12/17] esomeprazole magnesium 20 mg capsule,delayed release 20 mg PO BID #180 cap 08/12 [Rx Confirmed 09/19/17 Last Taken 08/12/17] Medical - DS: Hosp Hospital course: Discharge diagnosis * Septic shock-clinically resolved. Secondary to pyogenic liver abscess with bacteremia. On broad antibiotic coverage for 8 weeks * Pyogenic liver abscess -Peptostreptococcus micros isolated - on broad antibiotic coverage. Status post IR guided drain placement. Post cholecystectomy. Continue flagyl and zosyn. PICC line placement today for 6 weeks IV antibiotics. Outpatient colonoscopy/repeat CT for follow-up * History of hypertension -currently normotensive. Continue meds on hold for 2 weeks until follow-up with PCP * Acute on Chronic renal failure- creat down from 2.5-1.5->1.3 * diabetes mellitus-remained well controlled. Brief hospital course Mr. Rodriguez is a 62 year old Male with h/o dm, htn, hld, recent cholecystectomy, presents to the er for not feeling well over 2-3 weeks, the patient had a cholecystetomy done 08/13/17, the procedure went well and the patient was feeling good after the procedure. AT the end of august, he started to notice that he was more tired than usual, he was weak, and had shortness of breath on exertion, dizziness, decreased appetitie,fevers, chills and rigors. The patient was using aspirin/ tylenol to help with his fevers, and was thinking he would just fight this out, thinking its a viral syndrome. HE was convinced by family to eventually come to the hospital for evaluation. In the hospital he was noted to be hypotensive, he was afebrile, labs showed leucocytosis, renal failure, elevated procalcitonin to 72, elevaetd lft. Pt underwent a CT abdomen which showed a liver abscess, USG done, initially with the thought of a biopsy, but only pus came out, so a drain was placed. patient was admitted to the hospital for further management I spoke with the surgeon, Dr Pride who reviewed the images and does not feel that this is secondary to cholecysteomy. The fluid as per the surgeon in the extra hepatic space is likey to be non infected. The patient was in [place] in [place], but denies any over seas travels, denies eating raw foods, he did have diarrhea a few weeks and has had it ongoing, last BM yesterday. 09/20 Patient seen examined, no acute overnight events, drain not drain from liver not draining as much this AM Repeat CT done, shows drain is now in normal liver parenchyma not the abcess, also the size of extrahepatic abcess is unchanged will need multiple drains as per radiology here and he does not have the necessary tools to do this. Called Dr Briceño to see if he can help. He will review the images and get back with me Pt bp is stable, cut back fluids xfer to tele status. 09/21 Pt seen examiend, bp stable now off bp meds, tolerating po diet well Hd ant abdominal drain placed by [facility], was ddoing well till last night, when while flushing the drain, he noticed severe pain at the site of the drain, with not much liquid coming out Plan to flush with cath flow today usg ordered to check if any residual fluid collection. creat is still 1.7, so will avoid CT with contrast. xfer to med surg 09/22 Pt seen examined, no acute issues Pain in the abdomen better, drain draining now after 2mg cathflow Will conitnue to monitor labs stable, creat still at 1.7 Pt ambulatory on the floor tolerating po diet well 09/23-patient doing well. No overnight events. No concerns per staff. Afebrile. White count 9.3. Creatinine down from 2.5-1.5. Patient ambulating and tolerating diet. PICC line placement today. CT abdomen in a.m. to assess interval drainage of abscess. 09/[address] shows persistent hepatic abscess. Radiology recommends reinsertion of drain however patient refused drain placement and wants to continue IV antibiotics. Patient understands the risk of worsening hepatic abscess/sepsis and further complications that may arise out of undrained hepatic abscess. Patient clearly understands the risk and refused drain placement after discussion with Dr. Vargas intervention radiology in person. Patient will be discharged on 8 weeks of IV ertapenem/oral Flagyl which will be continued as an outpatient. Patient was also advised to follow-up with Dr. Pride surgery in [address] abdomen. If the abscess versus or enlarges patient will require drain placement. This was discussed with patient. Patient is being discharged with medications, recommendations and PICC line care instructions as below Discharge diagnosis: . - Time Spent with Patient Total time spent providing and/or coordinating discharge services: Greater than 30 minutes Medical - DS: Exam - Constitutional Vitals: Vital Signs Temp Pulse Resp BP Pulse Ox 09/24/17 16:00 98.3 F 20 120/83 95 09/24/17 11:56 98 F 16 90/63 98 09/24/17 08:00 96 09/24/17 06:44 97.9 F 20 108/72 96 09/24/17 04:00 98.5 F 88 12 110/73 96 09/24/17 00:00 98.5 F 86 12 100/64 96 09/23/17 20:00 98.0 F 98 H 12 106/73 96 Intake and Output 09/24/17 09/24/17 09/24/17 05:59 13:59 21:59 Intake Total 450 / 450 1380 / 1380 Output Total 6 / 6 425 / 425 Balance 450 / 450 1374 / 1374 -425 / -425 Intake: IV 150 / 150 150 / 150 Zosyn 3.375 gm In Dextrose 5% 50 / 50 50 / 50 in Water 50 ml @ 100 mls/hr IV Q6H [facility] Rx#:[id number] Oral 300 / 300 1230 / 1230 Output: Drainage / 6 Right Lateral Abdomen ABHINAV Drain / 6 Void Amount 425 / 425 # of times incontinent of urine 0 / 0 Other: Meal Sherbert Lunch Percent of Meal Consumed 100% 50% Feeding Ability Independent Independent # Voids 1 2 1 Weight 186 lb 8 oz Patient Weight 09/25/17 05:59 Weight 186 lb 8 oz Medical - DS: Data Labs on day of discharge: Labs from last 24 hours 09/24/17 09/24/17 04:56 04:56 WBC 11.2 H RBC 3.87 L Hgb 11.9 L Hct 35.7 L MCV 92.0 MCH 30.8 MCHC 33.4 RDW 13.3 Plt Count 459 H MPV 6.5 L Gran % 72.4 Lymph % (Auto) 14.5 L [place] % (Auto) 8.3 Eos % (Auto) 4.4 Baso % (Auto) 0.4 Gran # 8.1 H Lymph # (Auto) 1.6 [place] # (Auto) 0.9 Eos # (Auto) 0.5 Baso # (Auto) 0 Sodium 136 Potassium 4.1 Chloride 98 Carbon Dioxide 24 Anion Gap 14.0 BUN 9 Creatinine 1.3 H GFR Calculation 58 Glucose 149 H Uric Acid 2.7 Calcium 9.2 Phosphorus 3.7 Magnesium 1.8 Total Bilirubin 0.3 Direct Bilirubin < 0.2 GGT 68 H AST 17 ALT 13 Alkaline Phosphatase 152 H Lactate Dehydrogenase 148 Total Protein 7.2 Albumin 3.0 L Globulin 4.2 H Albumin/Globulin Ratio 0.7 L Triglycerides 179 H Preliminary micro results at discharge 09/21/17 11:07 Blood Culture - Preliminary Blood 09/21/17 11:10 Blood Culture - Preliminary Blood 09/19/17 19:35 Fungal Culture - Preliminary Abscess 09/19/17 15:40 Blood Culture - Preliminary Blood Streptococcus species 09/19/17 19:35 Anaerobic Culture - Preliminary Abscess Streptococcus species 09/19/17 20:22 Abscess Culture - Preliminary Abdomen - Middle Streptococcus species 09/19/17 15:48 Blood Culture - Preliminary Blood Gram positive cocci Medical - DS: A/P - Patient/Caregiver Discharge Instructions Activity: increase activity as tolerated Diet: Renal/Consistent Carbs Additional Instructions: Follow-up PCP in 5 days Recommend Follow-up with surgery Dr. Pride in [address] abdomen and interval evaluation of hepatic abscess Recommend Outpatient colonoscopy with GI in 4 weeks to be scheduled by PCP Antibiotics for 8 weeks IV ertapenem/oral Flagyl Continue fall precautions Antihypertensives including losartan/spironolactone currently on hold due to blood pressure within normal parameters during hospitalization off all antihypertensives. PCP to restart antihypertensives once systolics over 140. All meals on chair sitting upright at 90 degrees to prevent aspiration Return to ER if worsening fever chills shortness of breath, diarrhea, bleeding Review risk and side effect profile of medications including antibiotics. Side effect may include mild to severe reaction including rash, diarrhea, cdiff and even which can be prevented by close follow-up with PCP and monitoring for side effects Refrain from smoking and alcohol(high risk disulfiram-like reaction) Continue diet and activity as advised Discussed importance of medication adherence Please review medication list with patient prior to discharge Please schedule follow-up with PCP/Providers prior to discharge and provide printouts Portions of this chart may have been created with [employer] voice recognition software. Occasional wrong-word or ?sound-like? substitutions may have occurred due to the inherent limitations of voice recognition software. Please read the chart carefully and recognize, using context, where the substitutions have occurred. CC- PCP - Follow up Plan Follow up with: Buddy Obregon MD [Primary Care Provider] - Disposition: Home Health Service Prognosis: Critical Rehab Potential: Fair I certify that the patient requires SNF services: No Overall status at discharge: patient is progressing back to baseline Medical - DS: Qual - VTE Deep Vein Thrombosis/Pulmonary Embolism Present on Admission: No
== END 2017-09-24 21:00 | disposition home health service (06) | DRG 441 ==
LOC: ED 15:15 → ICU 20:16 → MEDSUR 09-21 16:04
PROVIDERS: ADMIT Internal Medicine; ATTEND Internal Medicine

== ENCOUNTER 2023-03-04 15:14 | Inpatient (IN) ==
[2023-03-04] MEDS ORDERED: IOPAMIDOL 100 ML BOTTLE IV ONE (15:15)
[2023-03-04] MEDS ORDERED: 0.9 % SODIUM CHLORIDE 1,000 ML IV ONE ×2 (15:21→19:58)
[2023-03-04 15:48] LABS: POC Calcium, Ionized 0.79 (1.16-1.32); POC Creatinine 0.9 (0.6-1.2); POC Potassium 2.8 (3.3-5.1)
[2023-03-04] MEDS ORDERED: POTASSIUM CHLORIDE 20 MEQ PACKET PO ONE ×3 (15:58→19:53)
[2023-03-04 16:03] LABS: Basophils # (Auto) 0.04 K/mcL (0.00-0.30); Basophils % (Auto) 0.6 % (0.0-2.0); Eosinophils # (Auto) 0.07 K/mcL (0.00-0.70); Eosinophils % (Auto) 1.1 % (0.0-7.0); Hemoglobin 16.3 g/dL (13.7-17.5); Lymphocytes # (Auto) 2.14 K/mcL (1.50-4.80); Lymphocytes % (Auto) 33.6 % (15.5-49.0); Mean Cell Volume 93.6 fL (80.0-100.0); Monocytes # (Auto) 0.43 K/mcL (0.10-0.90); Monocytes % (Auto) 6.8 % (1.0-12.0); Neutrophils % (Auto) 57.1 % (38.0-78.0); Platelet Count 176 K/mcL (140-440); RBC 5.13 M/mcL (4.63-6.08); Red Cell Distribution Width 13.5 % (11.5-14.5); WBC 6.4 K/mcL (4.5-11.0)
[2023-03-04 16:43] LABS: Thyroid Stimulating Hormone 0.56 uIU/mL (0.27-5.01)
[2023-03-04 18:11] LABS: POC Calcium, Ionized 0.81 (1.16-1.32); POC Creatinine 0.7 (0.6-1.2); POC Potassium 2.9 (3.3-5.1)
[2023-03-04] MEDS ORDERED: ONDANSETRON 4 MG/2 ML VIAL IV ONE (18:33)
[2023-03-04] MEDS ORDERED: ONDANSETRON 4 MG/2 ML VIAL ONE (18:34)
[2023-03-04] MEDS ORDERED: METOPROLOL TARTRATE 50 MG TABLET PO ONE (20:09)
[2023-03-04] MEDS ORDERED: METOPROLOL TARTRATE 25 MG TABLET PO ONE (20:12)
[2023-03-04 21:47] LABS: POC Calcium, Ionized 0.77 (1.16-1.32); POC Creatinine 0.6 (0.6-1.2); POC Potassium 2.7 (3.3-5.1)
[2023-03-04] MEDS ORDERED: metroNIDAZOLE 500 MG/100 ML BAG IV ONE (21:54)
[2023-03-04] MEDS ORDERED: CIPROFLOXACIN 400 MG/200 ML BAG IV ONE (21:54)
[2023-03-04] MEDS ORDERED: POTASSIUM CHLORIDE 40 MEQ in DEXTROSE 5% IN WATER 500 ML IV ONE (22:11)
[2023-03-04] MEDS ORDERED: POTASSIUM CHLORIDE 20 MEQ/10 ML VIAL IV ONE (22:36)
[2023-03-04] MEDS ORDERED: DEXTROSE 50% 50 ML VIAL IV PRN (22:44)
[2023-03-04] MEDS ORDERED: ACETAMINOPHEN 325 MG TABLET PO PRN (22:44)
[2023-03-04] MEDS ORDERED: IPRATROPIUM/ALBUTEROL 3 ML AMPUL.NEB NEB PRN (22:44)
[2023-03-04] MEDS ORDERED: DEXTROSE 31 GM ORAL.SUSP PO PRN (22:44)
[2023-03-04] MEDS ORDERED: ONDANSETRON 4 MG/2 ML VIAL IV PRN (22:44)
[2023-03-04] MEDS ORDERED: morphine 4 MG/ML VIAL IV PRN (22:44)
[2023-03-04] MEDS ORDERED: METOPROLOL TARTRATE 5 MG/5 ML VIAL IV PRN (22:58)
[2023-03-04] MEDS ORDERED: hydrALAZINE 20 MG/ML VIAL IV PRN (22:58)
[2023-03-04] MEDS ORDERED: CALCIUM GLUCONATE 4.65 MEQ/10 ML VIAL IV ONE (23:33)
[2023-03-05] MEDS: 0.9 % SODIUM CHLORIDE 1,000 ML IV SCH ×4 (01:04→19:20)
[2023-03-05] MEDS: metroNIDAZOLE 500 MG/100 ML BAG IV SCH ×4 (01:07→21:26)
[2023-03-05] MEDS ORDERED: CALCIUM GLUCONATE 4.65 MEQ/10 ML VIAL ONE (02:22)
[2023-03-05] MEDS: CIPROFLOXACIN 400 MG/200 ML BAG IV SCH ×3 (02:26→21:24)
[2023-03-05] MEDS ORDERED: oxyCODONE IR 5 MG TABLET PO ONE (04:51)
[2023-03-05] MEDS: oxyCODONE IR 5 MG TABLET PO PRN ×3 (04:54→23:36)
[2023-03-05] MEDS: 0.9 % SODIUM CHLORIDE 10 ML SYRINGE IV SCH ×3 (04:55→22:25)
[2023-03-05 06:24] LABS: Basophils # (Auto) 0.02 K/mcL (0.00-0.30); Basophils % (Auto) 0.3 % (0.0-2.0); Eosinophils # (Auto) 0.05 K/mcL (0.00-0.70); Eosinophils % (Auto) 0.8 % (0.0-7.0); Hematocrit 38.1 % (40.1-51.0); Hemoglobin 13.1 g/dL (13.7-17.5); Lymphocytes # (Auto) 1.05 K/mcL (1.50-4.80); Lymphocytes % (Auto) 17.1 % (15.5-49.0); Mean Cell Volume 93.8 fL (80.0-100.0); Mean Corpuscular HGB Conc 34.4 g/dL (31.0-36.0); Mean Platelet Volume 8.9 fL (8.8-12.5); Monocytes # (Auto) 0.43 K/mcL (0.10-0.90); Neutrophils % (Auto) 74.3 % (38.0-78.0); Platelet Count 118 K/mcL (140-440); RBC 4.06 M/mcL (4.63-6.08); Red Cell Distribution Width 13.4 % (11.5-14.5); WBC 6.1 K/mcL (4.5-11.0)
[2023-03-05 06:37] LABS: Estimated Average Glucose(eAG) 171 mg/dL; Hemoglobin A1C 7.6 % Hgb (4.0-6.0)
[2023-03-05] MEDS: POTASSIUM CHLORIDE 20 MEQ PACKET PO SCH ×2 (08:38→17:39)
[2023-03-05] MEDS: ENOXAPARIN 40 MG/0.4 ML SYRINGE SQ SCH (08:39)
[2023-03-05] MEDS: INSULIN LISPRO 1 UNIT/0.01 ML UNIT SQ SCH ×4 (08:40→21:36)
[2023-03-05] MEDS: DOCUSATE SODIUM 100 MG CAPSULE PO SCH ×2 (08:41→21:31)
[2023-03-05] MEDS ORDERED: MAGNESIUM SULFATE 4 GM/100 ML BAG IV SCH (09:06)
[2023-03-05] MEDS ORDERED: [UNRECOGNIZED DRUG - OTHER] PO SCH (21:00)
[2023-03-05] MEDS ORDERED: MAGNESIUM CHLORIDE PO SCH (21:00)
[2023-03-05] MEDS: SENNOSIDES 1 TABLET PO SCH (21:31)
[2023-03-06] MEDS: 0.9 % SODIUM CHLORIDE 1,000 ML IV SCH ×3 (01:07→13:34)
[2023-03-06] MEDS: metroNIDAZOLE 500 MG/100 ML BAG IV SCH ×3 (05:41→22:50)
[2023-03-06 06:09] LABS: Basophils # (Auto) 0.02 K/mcL (0.00-0.30); Basophils % (Auto) 0.5 % (0.0-2.0); Eosinophils # (Auto) 0.15 K/mcL (0.00-0.70); Eosinophils % (Auto) 3.6 % (0.0-7.0); Hematocrit 37.6 % (40.1-51.0); Hemoglobin 12.8 g/dL (13.7-17.5); Lymphocytes # (Auto) 0.67 K/mcL (1.50-4.80); Lymphocytes % (Auto) 15.9 % (15.5-49.0); Mean Cell Volume 92.6 fL (80.0-100.0); Mean Platelet Volume 9.3 fL (8.8-12.5); Monocytes # (Auto) 0.35 K/mcL (0.10-0.90); Monocytes % (Auto) 8.3 % (1.0-12.0); Platelet Count 110 K/mcL (140-440); RBC 4.06 M/mcL (4.63-6.08); Red Cell Distribution Width 13.3 % (11.5-14.5); WBC 4.2 K/mcL (4.5-11.0)
[2023-03-06 06:38] LABS: ALT/SGPT < 5 U/L (<40); AST/SGOT 23 U/L (<40); Albumin 3.5 gm/dL (3.2-5.2); Albumin/Globulin Ratio 1.6 (1.0-2.3); Alkaline Phosphatase 73 U/L (39-117); Bilirubin,Total 0.8 mg/dL (0.1-1.0); Blood Urea Nitrogen < 2 mg/dL (8-23); Calcium 6.3 mg/dL (8.6-10.4); Carbon Dioxide 22 mmol/L (22-30); Chloride 100 mmol/L (96-108); Globulin 2.2 gm/dL (2.2-3.7); Glomerular Filtration Rate 102; Glucose 131 mg/dL (70-105)
[2023-03-06] MEDS: PANTOPRAZOLE 40 MG TABLET PO SCH (07:20)
[2023-03-06] MEDS: POTASSIUM CHLORIDE 20 MEQ PACKET PO SCH ×2 (07:20→17:24)
[2023-03-06] MEDS: 0.9 % SODIUM CHLORIDE 10 ML SYRINGE IV SCH ×3 (07:31→21:25)
[2023-03-06] MEDS: INSULIN LISPRO 1 UNIT/0.01 ML UNIT SQ SCH ×4 (08:33→21:24)
[2023-03-06] MEDS: INSULIN GLARGINE, HUMAN 1 UNIT/0.01 ML SQ SCH (08:33)
[2023-03-06] MEDS: ATORVASTATIN 20 MG TABLET PO SCH (08:34)
[2023-03-06] MEDS: CALCIUM (OYSTER SHELL) 500 MG TABLET PO SCH (08:34)
[2023-03-06] MEDS: LOSARTAN 50 MG TABLET PO SCH (08:34)
[2023-03-06] MEDS: ASPIRIN 81 MG TAB.CHEW PO SCH (08:34)
[2023-03-06] MEDS: VITAMIN D3 125 MCG TABLET PO SCH (08:34)
[2023-03-06] MEDS: ENOXAPARIN 40 MG/0.4 ML SYRINGE SQ SCH (08:34)
[2023-03-06] MEDS ORDERED: POTASSIUM CHLORIDE 40 MEQ in DEXTROSE 5% IN WATER 500 ML IV ONE (09:00)
[2023-03-06] MEDS ORDERED: LOPERAMIDE 2 MG CAPSULE PO PRN (09:05)
[2023-03-06] MEDS ORDERED: CALCIUM GLUCONATE 4.65 MEQ/10 ML VIAL IV ONE (09:21)
[2023-03-06] MEDS ORDERED: CALCIUM GLUCONATE 9.3 MEQ in DEXTROSE 5% IN WATER 100 ML IV ONE (09:30)
[2023-03-06] MEDS: DOCUSATE SODIUM 100 MG CAPSULE PO SCH ×2 (09:37→21:16)
[2023-03-06] MEDS: CIPROFLOXACIN 400 MG/200 ML BAG IV SCH ×2 (09:39→21:16)
[2023-03-06] MEDS: Empagliflozin [Jardiance] 25 mg tablet PO SCH (10:49)
[2023-03-06] MEDS: SENNOSIDES 1 TABLET PO SCH (21:16)
[2023-03-07] MEDS: 0.9 % SODIUM CHLORIDE 1,000 ML IV SCH (02:11)
[2023-03-07] MEDS: 0.9 % SODIUM CHLORIDE 10 ML SYRINGE IV SCH ×3 (04:10→20:24)
[2023-03-07] MEDS: metroNIDAZOLE 500 MG/100 ML BAG IV SCH (05:36)
[2023-03-07 06:22] LABS: Basophils # (Auto) 0.03 K/mcL (0.00-0.30); Basophils % (Auto) 0.7 % (0.0-2.0); Eosinophils % (Auto) 4.6 % (0.0-7.0); Hematocrit 39.7 % (40.1-51.0); Hemoglobin 12.9 g/dL (13.7-17.5); Lymphocytes # (Auto) 0.96 K/mcL (1.50-4.80); Lymphocytes % (Auto) 22.3 % (15.5-49.0); Mean Cell Volume 97.5 fL (80.0-100.0); Mean Corpuscular HGB Conc 32.5 g/dL (31.0-36.0); Mean Platelet Volume 8.9 fL (8.8-12.5); Monocytes # (Auto) 0.49 K/mcL (0.10-0.90); Monocytes % (Auto) 11.4 % (1.0-12.0); Neutrophils % (Auto) 59.4 % (38.0-78.0); Platelet Count 102 K/mcL (140-440); RBC 4.07 M/mcL (4.63-6.08); Red Cell Distribution Width 13.4 % (11.5-14.5); WBC 4.3 K/mcL (4.5-11.0)
[2023-03-07 06:56] LABS: ALT/SGPT < 5 U/L (<40); AST/SGOT 17 U/L (<40); Albumin 3.6 gm/dL (3.2-5.2); Albumin/Globulin Ratio 1.5 (1.0-2.3); Alkaline Phosphatase 72 U/L (39-117); Bilirubin,Total 0.6 mg/dL (0.1-1.0); Blood Urea Nitrogen < 2 mg/dL (8-23); Calcium 7.3 mg/dL (8.6-10.4); Carbon Dioxide 19 mmol/L (22-30); Chloride 102 mmol/L (96-108); Globulin 2.4 gm/dL (2.2-3.7); Glomerular Filtration Rate 96; Glucose 139 mg/dL (70-105)
[2023-03-07] MEDS: PANTOPRAZOLE 40 MG TABLET PO SCH (07:26)
[2023-03-07] MEDS: POTASSIUM CHLORIDE 20 MEQ PACKET PO SCH ×2 (08:28→17:17)
[2023-03-07] MEDS: INSULIN LISPRO 1 UNIT/0.01 ML UNIT SQ SCH ×4 (08:28→20:23)
[2023-03-07] MEDS: ASPIRIN 81 MG TAB.CHEW PO SCH (08:29)
[2023-03-07] MEDS: ATORVASTATIN 20 MG TABLET PO SCH (08:29)
[2023-03-07] MEDS: INSULIN GLARGINE, HUMAN 1 UNIT/0.01 ML SQ SCH (08:29)
[2023-03-07] MEDS: CIPROFLOXACIN 400 MG/200 ML BAG IV SCH (08:31)
[2023-03-07] MEDS: ENOXAPARIN 40 MG/0.4 ML SYRINGE SQ SCH (08:32)
[2023-03-07] MEDS: Empagliflozin [Jardiance] 25 mg tablet PO SCH (09:56)
[2023-03-07] MEDS: DOCUSATE SODIUM 100 MG CAPSULE PO SCH ×2 (09:56→20:25)
[2023-03-07] MEDS ORDERED: POTASSIUM CHLORIDE 40 MEQ in DEXTROSE 5% IN WATER 500 ML IV ONE (09:57)
[2023-03-07] MEDS: LOSARTAN 50 MG TABLET PO SCH (10:00)
[2023-03-07] MEDS: CALCIUM (OYSTER SHELL) 500 MG TABLET PO SCH (10:01)
[2023-03-07] MEDS: VITAMIN D3 125 MCG TABLET PO SCH (10:53)
[2023-03-07] MEDS: metroNIDAZOLE 500 MG TABLET PO SCH ×2 (14:00→22:12)
[2023-03-07] MEDS: CIPROFLOXACIN 500 MG TABLET PO SCH (20:23)
[2023-03-07] MEDS: SENNOSIDES 1 TABLET PO SCH (20:25)
[2023-03-08] MEDS: metroNIDAZOLE 500 MG TABLET PO SCH ×3 (05:11→21:02)
[2023-03-08] MEDS: 0.9 % SODIUM CHLORIDE 10 ML SYRINGE IV SCH ×3 (05:13→21:03)
[2023-03-08 06:31] LABS: Basophils # (Auto) 0.03 K/mcL (0.00-0.30); Basophils % (Auto) 0.7 % (0.0-2.0); Eosinophils # (Auto) 0.26 K/mcL (0.00-0.70); Eosinophils % (Auto) 5.8 % (0.0-7.0); Hematocrit 35.8 % (40.1-51.0); Hemoglobin 12.4 g/dL (13.7-17.5); Lymphocytes # (Auto) 0.96 K/mcL (1.50-4.80); Lymphocytes % (Auto) 21.4 % (15.5-49.0); Mean Corpuscular HGB Conc 34.6 g/dL (31.0-36.0); Mean Platelet Volume 8.7 fL (8.8-12.5); Monocytes # (Auto) 0.47 K/mcL (0.10-0.90); Monocytes % (Auto) 10.5 % (1.0-12.0); Neutrophils % (Auto) 59.2 % (38.0-78.0); Platelet Count 102 K/mcL (140-440); RBC 3.85 M/mcL (4.63-6.08); Red Cell Distribution Width 13.4 % (11.5-14.5); WBC 4.5 K/mcL (4.5-11.0)
[2023-03-08 06:55] LABS: ALT/SGPT 6 U/L (<40); AST/SGOT 18 U/L (<40); Albumin 3.4 gm/dL (3.2-5.2); Albumin/Globulin Ratio 1.5 (1.0-2.3); Alkaline Phosphatase 71 U/L (39-117); Bilirubin,Total 0.4 mg/dL (0.1-1.0); Blood Urea Nitrogen < 2 mg/dL (8-23); Calcium 7.9 mg/dL (8.6-10.4); Carbon Dioxide 22 mmol/L (22-30); Chloride 98 mmol/L (96-108); Globulin 2.3 gm/dL (2.2-3.7); Glomerular Filtration Rate 96; Glucose 152 mg/dL (70-105)
[2023-03-08] MEDS: PANTOPRAZOLE 40 MG TABLET PO SCH (08:04)
[2023-03-08] MEDS: POTASSIUM CHLORIDE 20 MEQ PACKET PO SCH ×2 (08:05→17:21)
[2023-03-08] MEDS ORDERED: MAGNESIUM SULFATE 2 GM/50 ML BAG IV ONE (08:07)
[2023-03-08] MEDS: INSULIN LISPRO 1 UNIT/0.01 ML UNIT SQ SCH ×4 (08:53→21:03)
[2023-03-08] MEDS: ASPIRIN 81 MG TAB.CHEW PO SCH (08:54)
[2023-03-08] MEDS: LOSARTAN 50 MG TABLET PO SCH (08:54)
[2023-03-08] MEDS: DOCUSATE SODIUM 100 MG CAPSULE PO SCH (08:54)
[2023-03-08] MEDS: CIPROFLOXACIN 500 MG TABLET PO SCH ×2 (08:54→21:02)
[2023-03-08] MEDS: INSULIN GLARGINE, HUMAN 1 UNIT/0.01 ML SQ SCH (08:54)
[2023-03-08] MEDS: VITAMIN D3 125 MCG TABLET PO SCH (08:55)
[2023-03-08] MEDS: ATORVASTATIN 20 MG TABLET PO SCH (08:55)
[2023-03-08] MEDS: ENOXAPARIN 40 MG/0.4 ML SYRINGE SQ SCH (08:55)
[2023-03-08] MEDS: CALCIUM (OYSTER SHELL) 500 MG TABLET PO SCH (08:56)
[2023-03-08] MEDS: Empagliflozin [Jardiance] 25 mg tablet PO SCH (08:56)
[2023-03-08] MEDS ORDERED: POTASSIUM CHLORIDE 40 MEQ in DEXTROSE 5% IN WATER 500 ML IV ONE (09:00)
[2023-03-09] MEDS: metroNIDAZOLE 500 MG TABLET PO SCH (05:22)
[2023-03-09] MEDS: 0.9 % SODIUM CHLORIDE 10 ML SYRINGE IV SCH (05:22)
[2023-03-09 06:45] LABS: ALT/SGPT 6 U/L (<40); AST/SGOT 23 U/L (<40); Albumin 3.6 gm/dL (3.2-5.2); Albumin/Globulin Ratio 1.4 (1.0-2.3); Alkaline Phosphatase 74 U/L (39-117); Bilirubin,Direct < 0.2 mg/dL (0-0.3); Bilirubin,Total 0.4 mg/dL (0.1-1.0); Blood Urea Nitrogen 2 mg/dL (8-23); Calcium 8.7 mg/dL (8.6-10.4); Carbon Dioxide 22 mmol/L (22-30); Chloride 102 mmol/L (96-108); Globulin 2.5 gm/dL (2.2-3.7); Glomerular Filtration Rate 96; Glucose 142 mg/dL (70-105); Lactate Dehydrogenase 206 U/L (135-225); Phosphorous 3.3 mg/dL (2.5-4.5); Triglycerides 73 mg/dL (<150); Uric Acid 3.3 mg/dL (2.5-8.0)
[2023-03-09] MEDS: PANTOPRAZOLE 40 MG TABLET PO SCH (07:26)
[2023-03-09] MEDS: POTASSIUM CHLORIDE 20 MEQ PACKET PO SCH (07:26)
[2023-03-09] MEDS: CALCIUM (OYSTER SHELL) 500 MG TABLET PO SCH (08:36)
[2023-03-09] MEDS: CIPROFLOXACIN 500 MG TABLET PO SCH (08:36)
[2023-03-09] MEDS: ASPIRIN 81 MG TAB.CHEW PO SCH (08:37)
[2023-03-09] MEDS: INSULIN LISPRO 1 UNIT/0.01 ML UNIT SQ SCH (08:37)
[2023-03-09] MEDS: ATORVASTATIN 20 MG TABLET PO SCH (08:37)
[2023-03-09] MEDS: VITAMIN D3 125 MCG TABLET PO SCH (08:37)
[2023-03-09] MEDS: INSULIN GLARGINE, HUMAN 1 UNIT/0.01 ML SQ SCH (08:37)
[2023-03-09] MEDS: LOSARTAN 50 MG TABLET PO SCH (08:37)
[2023-03-09] MEDS: ENOXAPARIN 40 MG/0.4 ML SYRINGE SQ SCH (08:37)
[2023-03-09] MEDS: Empagliflozin [Jardiance] 25 mg tablet PO SCH (08:38)
== END 2023-03-09 10:55 | disposition home or self-care (01) | DRG 392 ==
LOC: ED 15:14 → MEDSUR 23:30
PROVIDERS: ADMIT Internal Medicine; ATTEND Internal Medicine

== ENCOUNTER 2023-04-24 10:41 | Inpatient (IN) ==
[2023-04-24] MEDS ORDERED: IOPAMIDOL 100 ML BOTTLE IV ONE (10:42)
[2023-04-24] MEDS ORDERED: 0.9 % SODIUM CHLORIDE 1,000 ML IV ONE (10:48)
[2023-04-24] MEDS ORDERED: POTASSIUM CHLORIDE 20 MEQ TABLET PO ONE ×2 (10:48→11:20)
[2023-04-24] MEDS ORDERED: POTASSIUM CHLORIDE 20 MEQ in DEXTROSE 5% IN WATER 250 ML IV ONE ×3 (10:48→12:48)
[2023-04-24 11:20] LABS: POC Blood Urea Nitrogen < 3 (6-20); POC Calcium, Ionized 0.96 (1.16-1.32); POC Chloride 87 (96-108); POC Creatinine 1.1 (0.6-1.2); POC Glucose, Random 204 (70-105); POC Potassium < 2.0 (3.3-5.1); POC Sodium 130 (133-145)
[2023-04-24 11:51] LABS: Basophils # (Auto) 0.05 K/mcL (0.00-0.30); Basophils % (Auto) 0.8 % (0.0-2.0); Eosinophils # (Auto) 0.14 K/mcL (0.00-0.70); Eosinophils % (Auto) 2.2 % (0.0-7.0); Hematocrit 41.8 % (40.1-51.0); Lymphocytes # (Auto) 1.73 K/mcL (1.50-4.80); Lymphocytes % (Auto) 27.7 % (15.5-49.0); Mean Cell Volume 90.3 fL (80.0-100.0); Mean Corpuscular HGB Conc 35.9 g/dL (31.0-36.0); Mean Platelet Volume 9.3 fL (8.8-12.5); Monocytes # (Auto) 0.79 K/mcL (0.10-0.90); Monocytes % (Auto) 12.6 % (1.0-12.0); Neutrophils % (Auto) 55.3 % (38.0-78.0); Platelet Count 217 K/mcL (140-440); RBC 4.63 M/mcL (4.63-6.08); Red Cell Distribution Width 13.3 % (11.5-14.5); WBC 6.3 K/mcL (4.5-11.0)
[2023-04-24 12:04] LABS: ALT/SGPT < 5 U/L (<40); AST/SGOT 21 U/L (<40); Albumin 4.1 gm/dL (3.2-5.2); Alkaline Phosphatase 96 U/L (39-117); Bilirubin,Direct 0.4 mg/dL (<0.3); Globulin 2.8 gm/dL (2.2-3.7)
[2023-04-24 13:10] LABS: Blood Urea Nitrogen 4 mg/dL (8-23); Calcium 9.4 mg/dL (8.6-10.4); Carbon Dioxide 20 mmol/L (22-30); Chloride 86 mmol/L (96-108); Glomerular Filtration Rate 61; Glucose 202 mg/dL (70-105)
[2023-04-24] MEDS ORDERED: MAGNESIUM SULFATE 2 GM/50 ML BAG IV ONE (13:13)
[2023-04-24 14:07] LABS: Appearance,Urine CLEAR (Clear); Bilirubin,Urine NEG (Negative); Color,Urine YELLOW; Glucose,Urine (UA) NEG (Negative); Ketones,Urine NEG (Negative); Leukocyte Esterase,Urine NEG /uL (Negative); Mucus,Urine FEW /hpf; Nitrate,Urine NEG (Negative); Protein,Urine NEG (Negative); Specific Gravity,Urine 1.013 (1.000-1.035); Urine Blood NEG (Negative); Urine RBC 0 /hpf (0-3); Urine Squamous Epithelial Cell 0 /hpf (0-4); Urine WBC < 1 /hpf (0-4)
[2023-04-24] MEDS ORDERED: POLYETHYLENE GLYCOL 3350 17 GM PACKET PO PRN (16:21)
[2023-04-24] MEDS ORDERED: IPRATROPIUM/ALBUTEROL 3 ML AMPUL.NEB NEB PRN (16:21)
[2023-04-24] MEDS ORDERED: LOPERAMIDE 2 MG CAPSULE PO PRN (16:21)
[2023-04-24] MEDS ORDERED: DEXTROSE 50% 50 ML VIAL IV PRN (16:21)
[2023-04-24] MEDS ORDERED: 0.9 % SODIUM CHLORIDE 1,000 ML IV SCH (16:21)
[2023-04-24] MEDS ORDERED: ACETAMINOPHEN 325 MG TABLET PO PRN (16:21)
[2023-04-24] MEDS ORDERED: MAGNESIUM SULFATE 2 GM/50 ML BAG IV PRN (16:21)
[2023-04-24] MEDS ORDERED: DEXTROSE 31 GM ORAL.SUSP PO PRN (16:21)
[2023-04-24] MEDS ORDERED: ONDANSETRON 4 MG/2 ML VIAL IV PRN (16:21)
[2023-04-24] MEDS: INSULIN LISPRO 1 UNIT/0.01 ML UNIT SQ SCH ×2 (16:44→21:51)
[2023-04-24] MEDS: MULTIVIT,THER IRON,CA,FA & MIN 1 TABLET PO SCH (16:44)
[2023-04-24] MEDS: THIAMINE 100 MG TABLET PO SCH (16:44)
[2023-04-24] MEDS: FOLIC ACID 1 MG TABLET PO SCH (16:44)
[2023-04-24 18:31] LABS: Blood Urea Nitrogen 3 mg/dL (8-23); Calcium 8.6 mg/dL (8.6-10.4); Carbon Dioxide 26 mmol/L (22-30); Chloride 92 mmol/L (96-108); Glomerular Filtration Rate 76; Glucose 200 mg/dL (70-105)
[2023-04-24 19:10] LABS: Phosphorous 0.6 mg/dL (2.5-4.5)
[2023-04-24] MEDS: POTASSIUM CHLORIDE 20 MEQ TABLET PO PRN (19:12)
[2023-04-24] MEDS ORDERED: POTASSIUM CHLORIDE 20 MEQ/10 ML VIAL IV ONE (19:15)
[2023-04-24] MEDS ORDERED: POTASSIUM PHOSPHATE 40 MEQ in DEXTROSE 5% IN WATER 500 ML IV ONE (19:18)
[2023-04-24] MEDS ORDERED: POTASSIUM PHOSPHATE 66 MEQ/15 ML VIAL IV ONE (20:00)
[2023-04-24] MEDS: PHOSPHORUS 250 MG TABLET PO SCH (21:43)
[2023-04-25] MEDS: POTASSIUM CHLORIDE 40 MEQ in DEXTROSE 5% IN WATER 500 ML IV PRN ×2 (00:32→09:14)
[2023-04-25] MEDS ORDERED: traZODone HCL 100 MG TABLET PO PRN (07:47)
[2023-04-25 08:04] LABS: AST/SGOT 20 U/L (<40); Albumin 3.3 gm/dL (3.2-5.2); Albumin/Globulin Ratio 1.7 (1.0-2.3); Alkaline Phosphatase 68 U/L (39-117); Bilirubin,Direct 0.2 mg/dL (<0.3); Bilirubin,Total 0.5 mg/dL (0.1-1.0); Blood Urea Nitrogen 3 mg/dL (8-23); Calcium 7.6 mg/dL (8.6-10.4); Carbon Dioxide 26 mmol/L (22-30); Chloride 98 mmol/L (96-108); Glomerular Filtration Rate 86; Glucose 172 mg/dL (70-105); Lactate Dehydrogenase 153 U/L (135-225); Phosphorous 2.9 mg/dL (2.5-4.5); Triglycerides 100 mg/dL (<150); Uric Acid 5.4 mg/dL (2.5-8.0)
[2023-04-25] MEDS ORDERED: CALCIUM GLUCONATE 4.65 MEQ/10 ML VIAL IV ONE (08:08)
[2023-04-25] MEDS ORDERED: LOSARTAN 50 MG TABLET PO SCH (09:00)
[2023-04-25] MEDS: INSULIN LISPRO 1 UNIT/0.01 ML UNIT SQ SCH ×4 (09:13→20:31)
[2023-04-25] MEDS: PHOSPHORUS 250 MG TABLET PO SCH ×4 (09:14→20:31)
[2023-04-25] MEDS: INSULIN GLARGINE, HUMAN 1 UNIT/0.01 ML SQ SCH (09:14)
[2023-04-25] MEDS: ENOXAPARIN 40 MG/0.4 ML SYRINGE SQ SCH (09:14)
[2023-04-25] MEDS: POTASSIUM CHLORIDE 20 MEQ TABLET PO PRN ×2 (09:15→14:51)
[2023-04-25] MEDS: MULTIVIT,THER IRON,CA,FA & MIN 1 TABLET PO SCH (09:15)
[2023-04-25] MEDS: FOLIC ACID 1 MG TABLET PO SCH (09:15)
[2023-04-25] MEDS: ASPIRIN 81 MG TAB.CHEW PO SCH (09:15)
[2023-04-25] MEDS: PANTOPRAZOLE 40 MG TABLET PO SCH (09:15)
[2023-04-25] MEDS: THIAMINE 100 MG TABLET PO SCH (09:15)
[2023-04-25] MEDS: ATORVASTATIN 20 MG TABLET PO SCH (09:15)
[2023-04-25] MEDS: 0.9 % SODIUM CHLORIDE 10 ML SYRINGE IV SCH ×2 (12:48→20:24)
[2023-04-25] MEDS: POTASSIUM CHLORIDE 20 MEQ TABLET PO SCH (16:43)
[2023-04-26 04:28] VITALS: TEMP 97.8
[2023-04-26 06:27] LABS: ALT/SGPT < 5 U/L (<40); AST/SGOT 21 U/L (<40); Albumin 3.1 gm/dL (3.2-5.2); Albumin/Globulin Ratio 1.5 (1.0-2.3); Alkaline Phosphatase 67 U/L (39-117); Bilirubin,Direct < 0.2 mg/dL (0-0.3); Bilirubin,Total 0.3 mg/dL (0.1-1.0); Blood Urea Nitrogen 2 mg/dL (8-23); Calcium 8.6 mg/dL (8.6-10.4); Carbon Dioxide 25 mmol/L (22-30); Chloride 103 mmol/L (96-108); Globulin 2.1 gm/dL (2.2-3.7); Glomerular Filtration Rate 91; Glucose 152 mg/dL (70-105); Lactate Dehydrogenase 168 U/L (135-225); Triglycerides 102 mg/dL (<150); Uric Acid 4.6 mg/dL (2.5-8.0)
[2023-04-26] MEDS: POTASSIUM CHLORIDE 20 MEQ TABLET PO PRN (06:39)
[2023-04-26] MEDS: 0.9 % SODIUM CHLORIDE 10 ML SYRINGE IV SCH (06:40)
[2023-04-26] MEDS: PANTOPRAZOLE 40 MG TABLET PO SCH (06:40)
[2023-04-26] MEDS: INSULIN GLARGINE, HUMAN 1 UNIT/0.01 ML SQ SCH (07:54)
[2023-04-26] MEDS: ASPIRIN 81 MG TAB.CHEW PO SCH (07:55)
[2023-04-26] MEDS: INSULIN LISPRO 1 UNIT/0.01 ML UNIT SQ SCH (07:55)
[2023-04-26] MEDS: ENOXAPARIN 40 MG/0.4 ML SYRINGE SQ SCH (07:55)
[2023-04-26] MEDS: ATORVASTATIN 20 MG TABLET PO SCH (07:56)
[2023-04-26] MEDS: MULTIVIT,THER IRON,CA,FA & MIN 1 TABLET PO SCH (07:56)
[2023-04-26] MEDS: THIAMINE 100 MG TABLET PO SCH (07:56)
[2023-04-26] MEDS: POTASSIUM CHLORIDE 20 MEQ TABLET PO SCH (07:56)
[2023-04-26] MEDS: FOLIC ACID 1 MG TABLET PO SCH (07:57)
[2023-04-26] MEDS ORDERED: LOSARTAN 25 MG TABLET PO SCH (09:00)
[2023-04-26 10:02] VITALS: O2SAT 98
== END 2023-04-26 10:40 | disposition home or self-care (01) | DRG 641 ==
LOC: ED 10:41 → ICU 16:15
PROVIDERS: ADMIT Internal Medicine; ATTEND Internal Medicine

== ENCOUNTER 2023-11-11 10:37 | Inpatient (IN) ==
[2023-11-11 12:59] LABS: Basophils # (Auto) 0.03 K/mcL (0.00-0.30); Basophils % (Auto) 0.5 % (0.0-2.0); Eosinophils # (Auto) 0.21 K/mcL (0.00-0.70); Eosinophils % (Auto) 3.4 % (0.0-7.0); Hemoglobin 18.4 g/dL (13.7-17.5); Lymphocytes # (Auto) 1.73 K/mcL (1.50-4.80); Lymphocytes % (Auto) 27.7 % (15.5-49.0); Mean Cell Volume 89.3 fL (80.0-100.0); Mean Corpuscular HGB Conc 36.1 g/dL (31.0-36.0); Mean Platelet Volume 9.3 fL (8.8-12.5); Monocytes # (Auto) 0.88 K/mcL (0.10-0.90); Monocytes % (Auto) 14.1 % (1.0-12.0); Neutrophils % (Auto) 53.7 % (38.0-78.0); Platelet Count 180 K/mcL (140-440); RBC 5.71 M/mcL (4.63-6.08); Red Cell Distribution Width 12.3 % (11.5-14.5); WBC 6.3 K/mcL (4.5-11.0)
[2023-11-11 13:23] LABS: Appearance,Urine Clear (Clear); Bilirubin,Urine Moderate mg/dL (Negative); Color,Urine Amber; Culture Indicated,Urine No; Glucose,Urine (UA) >=1000 mg/dL (Negative); Ketones,Urine 40 mg/dL (Negative); Leukocyte Esterase,Urine Negative /uL (Negative); Nitrate,Urine Negative (Negative); Protein,Urine 100 mg/dL (Negative); Specific Gravity,Urine 1.015 (1.000-1.035); Urine Blood Negative ery/mcL (Negative); Urine RBC 0 /hpf (0-3); Urine Squamous Epithelial Cell 0 /hpf (0-4); Urine WBC 0 /hpf (0-4)
[2023-11-11 13:28] LABS: ALT/SGPT 21 U/L (<40); AST/SGOT 63 U/L (<40); Albumin 4.4 gm/dL (3.2-5.2); Albumin/Globulin Ratio 1.6 (1.0-2.3); Alkaline Phosphatase 118 U/L (39-117); Bilirubin,Total 0.9 mg/dL (0.1-1.0); Blood Urea Nitrogen 5 mg/dL (8-23); Carbon Dioxide 27 mmol/L (22-30); Chloride 83 mmol/L (96-108); Globulin 2.7 gm/dL (2.2-3.7); Glomerular Filtration Rate 76; Glucose 350 mg/dL (70-105); Potassium 2.4 mmol/L (3.3-5.1); Sodium 132 mmol/L (133-145)
[2023-11-11] MEDS: 0.9 % SODIUM CHLORIDE 500 ML IV ONE ×2 (13:50→15:29)
[2023-11-11] MEDS: POTASSIUM CHLORIDE 20 MEQ TABLET PO ONE (14:04)
[2023-11-11] MEDS: POTASSIUM CHLORIDE 40 MEQ in DEXTROSE 5% IN WATER 500 ML IV ONE ×2 (14:05→22:40)
[2023-11-11 16:58] LABS: ABG Methemoglobin 0.3 % (0.4-1.5); Total Hemoglobin 16.8 gm/Dl (13.5-16.5); VBG Base Excess 5 (-2-3); VBG HCO3 29.4 mmol/L (24.0-28.0); VBG Oxygen Saturation 94.8 % (40.0-70.0); VBG PH 7.47 U (7.32-7.42); VBG PO2 104.7 mmHg (25.0-40.0); VBG Total CO2 30.7 mmol/L (25.0-29.0)
[2023-11-11] MEDS: CIPROFLOXACIN 400 MG/200 ML BAG IV ONE (18:21)
[2023-11-11 18:55] LABS: Alcohol, Blood < 10.1 mg/dL; Alcohol,Blood < 0.010 gm/dL (<0.010)
[2023-11-11] MEDS ORDERED: IPRATROPIUM/ALBUTEROL 3 ML AMPUL.NEB NEB PRN (19:27)
[2023-11-11] MEDS ORDERED: ACETAMINOPHEN 325 MG TABLET PO PRN (19:27)
[2023-11-11] MEDS ORDERED: DEXTROSE 50% 50 ML VIAL IV PRN ×3 (19:27→19:51)
[2023-11-11] MEDS ORDERED: DEXTROSE 31 GM ORAL.SUSP PO PRN ×3 (19:27→19:50)
[2023-11-11] MEDS ORDERED: oxyCODONE IR 5 MG TABLET PO PRN (19:27)
[2023-11-11] MEDS ORDERED: morphine 2 MG/ML VIAL IV PRN (19:27)
[2023-11-11] MEDS ORDERED: ONDANSETRON 4 MG/2 ML VIAL IV PRN (19:27)
[2023-11-11] MEDS: CIPROFLOXACIN 400 MG/200 ML BAG IV SCH (19:36)
[2023-11-11] MEDS: metroNIDAZOLE 500 MG/100 ML BAG IV ONE (19:51)
[2023-11-11] MEDS: 0.9 % SODIUM CHLORIDE 1,000 ML IV SCH (20:41)
[2023-11-11] MEDS: HEPARIN 5,000 UNIT/ML VIAL SQ SCH (20:46)
[2023-11-11] MEDS: INSULIN LISPRO 1 UNIT/0.01 ML UNIT SQ SCH (20:52)
[2023-11-11] MEDS: 0.9 % SODIUM CHLORIDE 10 ML SYRINGE IV SCH (20:53)
[2023-11-11 22:08] LABS: Blood Urea Nitrogen 5 mg/dL (8-23); Calcium 7.7 mg/dL (8.6-10.4); Carbon Dioxide 26 mmol/L (22-30); Chloride 88 mmol/L (96-108); Glomerular Filtration Rate 76; Glucose 322 mg/dL (70-105); Potassium 2.8 mmol/L (3.3-5.1); Sodium 132 mmol/L (133-145)
[2023-11-12] MEDS: POTASSIUM CHLORIDE 20 MEQ/10 ML VIAL IV ONE (00:03)
[2023-11-12] MEDS: metroNIDAZOLE 500 MG/100 ML BAG IV SCH (00:17)
[2023-11-12 06:58] LABS: Basophils # (Auto) 0.02 K/mcL (0.00-0.30); Basophils % (Auto) 0.5 % (0.0-2.0); Eosinophils # (Auto) 0.18 K/mcL (0.00-0.70); Eosinophils % (Auto) 4.8 % (0.0-7.0); Hematocrit 43.1 % (40.1-51.0); Hemoglobin 15.1 g/dL (13.7-17.5); Lymphocytes # (Auto) 1.34 K/mcL (1.50-4.80); Lymphocytes % (Auto) 35.9 % (15.5-49.0); Mean Cell Volume 94.3 fL (80.0-100.0); Mean Platelet Volume 8.9 fL (8.8-12.5); Monocytes # (Auto) 0.47 K/mcL (0.10-0.90); Monocytes % (Auto) 12.6 % (1.0-12.0); Neutrophils % (Auto) 45.7 % (38.0-78.0); Platelet Count 131 K/mcL (140-440); RBC 4.57 M/mcL (4.63-6.08); Red Cell Distribution Width 12.5 % (11.5-14.5); WBC 3.7 K/mcL (4.5-11.0)
[2023-11-12 07:22] LABS: ALT/SGPT 16 U/L (<40); AST/SGOT 44 U/L (<40); Albumin 3.4 gm/dL (3.2-5.2); Albumin/Globulin Ratio 1.8 (1.0-2.3); Alkaline Phosphatase 84 U/L (39-117); Bilirubin,Total 0.8 mg/dL (0.1-1.0); Blood Urea Nitrogen 4 mg/dL (8-23); Calcium 7.3 mg/dL (8.6-10.4); Carbon Dioxide 25 mmol/L (22-30); Chloride 93 mmol/L (96-108); Globulin 1.9 gm/dL (2.2-3.7); Glomerular Filtration Rate 86; Glucose 264 mg/dL (70-105); Potassium 2.8 mmol/L (3.3-5.1); Sodium 133 mmol/L (133-145)
[2023-11-12 07:41] LABS: Estimated Average Glucose(eAG) 260 mg/dL; Hemoglobin A1C 10.7 % Hgb (4.0-6.0)
[2023-11-12] MEDS: CIPROFLOXACIN 400 MG/200 ML BAG IV SCH (09:47)
[2023-11-12] MEDS: POTASSIUM CHLORIDE 40 MEQ in DEXTROSE 5% IN WATER 500 ML IV ONE (09:50)
[2023-11-12] MEDS ORDERED: morphine 2 MG/ML VIAL IV PRN (10:18)
[2023-11-12] MEDS: INSULIN GLARGINE, HUMAN 1 UNIT/0.01 ML SQ SCH (15:04)
[2023-11-12] MEDS: VANCOMYCIN 125 MG CAPSULE PO SCH (17:35)
[2023-11-12] MEDS: POTASSIUM CHLORIDE 20 MEQ/15 ML ML PO SCH (17:45)
[2023-11-12] MEDS ORDERED: NON FORMULARY MEDICATION 1 DOSE MISCELL (Potassium Chloride 20 mEq tablet extended release PO SCH (21:00)
[2023-11-13 06:45] LABS: Basophils # (Auto) 0.02 K/mcL (0.00-0.30); Basophils % (Auto) 0.7 % (0.0-2.0); Eosinophils # (Auto) 0.17 K/mcL (0.00-0.70); Eosinophils % (Auto) 6.1 % (0.0-7.0); Hematocrit 41.3 % (40.1-51.0); Hemoglobin 14.7 g/dL (13.7-17.5); Lymphocytes # (Auto) 0.84 K/mcL (1.50-4.80); Mean Cell Volume 93.2 fL (80.0-100.0); Mean Corpuscular HGB Conc 35.6 g/dL (31.0-36.0); Mean Platelet Volume 8.7 fL (8.8-12.5); Monocytes # (Auto) 0.49 K/mcL (0.10-0.90); Monocytes % (Auto) 17.5 % (1.0-12.0); Neutrophils % (Auto) 44.3 % (38.0-78.0); Platelet Count 112 K/mcL (140-440); RBC 4.43 M/mcL (4.63-6.08); Red Cell Distribution Width 12.5 % (11.5-14.5); WBC 2.8 K/mcL (4.5-11.0)
[2023-11-13 07:07] LABS: ALT/SGPT 14 U/L (<40); AST/SGOT 66 U/L (<40); Albumin 3.1 gm/dL (3.2-5.2); Albumin/Globulin Ratio 1.6 (1.0-2.3); Alkaline Phosphatase 74 U/L (39-117); Bilirubin,Total 0.5 mg/dL (0.1-1.0); Blood Urea Nitrogen 3 mg/dL (8-23); Carbon Dioxide 25 mmol/L (22-30); Chloride 101 mmol/L (96-108); Globulin 1.9 gm/dL (2.2-3.7); Glomerular Filtration Rate 90; Glucose 201 mg/dL (70-105); Sodium 138 mmol/L (133-145)
[2023-11-13] MEDS: PANTOPRAZOLE 40 MG TABLET PO SCH (08:07)
[2023-11-13] MEDS ORDERED: INSULIN GLARGINE, HUMAN 1 UNIT/0.01 ML SQ SCH (09:00)
[2023-11-13] MEDS: LOSARTAN 25 MG TABLET PO SCH (10:18)
== END 2023-11-13 10:41 | disposition home or self-care (01) | DRG 372 ==
LOC: ED 10:37 → ICU 10:37
PROVIDERS: ADMIT Internal Medicine; ATTEND Internal Medicine